=== PATIENT | female | born 1970 | race Caucasian/White ===

== ENCOUNTER 2016-12-08 14:57 | Inpatient (IN) | payer OTHER ==
[~2016-12-08] VITALS: Ht 152.4 cm; Wt 55.3 kg
--- NOTE | ~2016-12-08 | PR ---
[place], [place] PROGRESS NOTE NAME: JARED VYAS UNIT #: [id number] ROOM: 412 DOCTOR: KLARISSA BENSON MD BIRTHDATE: [birth year] DOS: SUBJECTIVE: The patient is doing fine without any complaints this morning. OBJECTIVE: VITAL SIGNS: Graphic trend shows blood pressure 133/88, pulse of 98, respirations 18, temperature 98.0. LUNGS: Clear. HEART: Regular. ABDOMEN: Obese, soft, nontender. EXTREMITIES: Without any edema. ASSESSMENT AND PLAN: 1. Diabetic ketoacidosis, which has resolved. 2. Type 2 diabetes mellitus, insulin-dependent, poorly controlled because of lack of medication. She stopped taking her medications a few days ago. 3. Coronary artery disease of [place] coronaries with history of stent placement. Cardiology consultation was obtained. No further workup planned. The patient to follow up with Dr. Kingsley for readjustment and Levemir dosage. KLARISSA BENSON MD CM:PNTRANS [id number] KLARISSA BENSON MD 12/10/16 1026 interface
--- NOTE | ~2016-12-08 | WRIGHTHP ---
[place], [place] PATIENT HISTORY AND PHYSICAL EXAM NAME: JARED VYAS [facility] #: [id number] UNIT #: [id number] ROOM: 412 DOCTOR: KLARISSA BENSON MD BIRTHDATE: [birth year] DOS: 12/08/2016 HISTORY OF PRESENT ILLNESS: The patient is 46 years old, known to me from previous admission. The patient states for the last several days, she has not felt very good. She has been dizzy, lightheaded, had occasional chest pain, has been short of breath and been increasingly tired, so finally yesterday because of quite a lot weakness that she was experiencing, she decided to come into the Emergency Room. She also noted the heart was racing. She has been admitted here last in 06/2015 with DKA. The patient states that she lost a lot of weight after that and stopped taking all her diabetic medications and she has not checked her blood sugar in months. PAST MEDICAL HISTORY: Significant for; 1. Type 2 diabetes mellitus, insulin-dependent, has stopped taking all her medications about a year ago. 2. History of rheumatoid arthritis, on long-term use of steroids. 3. History of coronary artery disease with history of stent placement in the past by Dr. Velázquez. 4. Benign hypertension. 5. Chronic pain. MEDICATIONS: Voltaren 75 mg daily, Lovenox 60 subQ twice a day, nortriptyline 25 daily, oxycodone 10 daily p.r.n. and 20 b.i.d., prednisone 50 mg daily for 3 days. SOCIAL HISTORY: Nonsmoker, occasional alcohol usage. Children are grown. She takes care of her disabled son. PHYSICAL EXAMINATION: VITAL SIGNS: Graphic trend shows a pressure 111/68, pulse of 115, respirations 20, temperature 98.5. LUNGS: Diminished breath sounds. No wheezes, rales or rhonchi heard. HEART: Regular. ABDOMEN: Soft. EXTREMITIES: Without any edema. LABORATORY DATA: WBC count is 7.7, hemoglobin 15.7, hematocrit 45.8. Protime is normal. Comprehensive glucose 435, BUN 7, creatinine 0.68, sodium 132, potassium 4.2, chloride 95. Liver enzymes normal. Chest x-ray normal. No pathology noted. Troponin was normal. ASSESSMENT AND PLAN: 1. The patient admitted with chest pain, has tachycardia and elevated blood pressures. The patient has been started on Coreg. 2. Hyperglycemia with evidence of diabetic ketoacidosis, anion gap 12, ketone positive. The patient is placed on IV fluids and IV insulin. I also encouraged the patient to restart her diabetic meds and have a close followup with that. 3. Coronary artery disease of [place] coronary, status post stent placement. Cardiology consultation was obtained. I do not believe the chest pain is atypical, most likely from the hypoglycemia and diabetic ketoacidosis. [place], [place] PATIENT HISTORY AND PHYSICAL EXAM [facility]: [id number] UNIT #: [id number] ROOM: [facility] DOCTOR: KLARISSA BENSON MD BIRTHDATE: [birth year] 4. Rheumatoid arthritis, on chronic pain management is being continued. KLARISSA BENSON MD CM:HISPHYS:PATIENT HISTORY AND PHYSICAL EXAMINATION [id number] KLARISSA BENSON MD 12/09/16 0859 interface
--- NOTE | ~2016-12-08 | DS ---
[place], [place] DISCHARGE SUMMARY NAME: [facility]AS [id number] UNIT #: [id number] ROOM: 412 DOCTOR: KLARISSA BENSON MD BIRTHDATE: [birth year] DOS: 12/10/2016 DIAGNOSES: 1. Diabetic ketoacidosis. 2. Type 2 diabetes mellitus, poorly controlled from noncompliance. 3. Rheumatoid arthritis, long-term use of steroids. 4. Coronary artery disease, with history of stent placement by Dr. Velázquez. 5. Hypertension. 6. Chronic pain. MEDICATIONS: New medications prescribed were Levemir 20 units at 5 p.m. and Coreg 12.5 mg twice a day. Home meds are being continued. HOSPITAL COURSE: This patient is a 46-year-old, comes in with complaints of chest pain. Please see H and P for details. After admission, the patient was found to be in DKA. The patient was started on IV fluids, IV insulin drip. The ketoacidosis resolved and the patient's IV insulin drip was discontinued and placed on Levemir. Blood sugars are 200s and high 300s, but the Levemir dosage will need to be further adjusted. The patient is clinically stable and is not having any complaints. No cardiology workup is planned. Cardiology was consulted. Troponins have all come back negative. The plan is to discharge her home today. Further adjustment of meds to be made as an outpatient to better control diabetes. The patient is also encouraged not to stop her medications. KLARISSA BENSON MD CM:DISCHARG [phone] KLARISSA BENSON MD 12/10/16 1000 interface
[~2016-12-08 14:57] MED LIST: ASPIRIN81 M1 PO; ATENOLOL25 MG PO; CLARITIN-D 10 M1 T21 PO; CLARITIN10 MG PO; CYCLOBENZAPRINE10 MG PO; FLONASE 0.05% 121 EA NAS; HUMIRA40 MG/0.3 SQ; HYDROCODONE BIT1 T11 PO; INVOKANA300 M1 PO; LEVEMIR10 ML SC; MACROBID100 M1 PO; METHOTREXATE2.5 M1 PO; OMNICEF300 MG PO; OPANA10 MG PO; OXYCODONE HCL10 M1 PO; PLAVIX75 M1 PO; PLAVIX75 MG PO; PREDNICOT10 MG PO; PREDNISONE20 M1 PO; SIMVASTATIN5 MG PO; VICODIN 500 MG-1 TAB PO; ZITHROMAX Z PA250 MG PO; ZOFRAN ODT4 MG SL; Zofran4 MG PO
[2016-12-08 15:18] VITALS: BP 149/108
[2016-12-08 15:19] LABS: BASO % 0.3 % (0.0-1.0); EOS % 0.3 % (1.0-4.0); HEMATOCRIT 45.8 % (37.0-47.0); HEMOGLOBIN 15.7 g/dl (12.0-16.0); LYMPH # 0.9 10*3/uL (1.3-4.4); LYMPH % 11.2 % (27.0-41.0); MEAN CELL VOLUME 76.7 fl (81.0-99.0); MEAN CORPUSCULAR HGB 26.3 pg (27.0-31.0); MEAN CORPUSCULAR HGB CONC 34.3 g/dl (33.0-37.0); MEAN PLATELET VOLUME 10.8 fl (9.6-12.3); MONO # 0.3 10*3/uL (0.1-1.0); MONO % 3.5 % (3.0-9.0); NEUT # 6.5 10*3/uL (2.3-7.9); NEUT % 84.6 % (47.0-73.0); PLATELET COUNT AUTOMATED 267 10*3/uL (130-400); RED BLOOD COUNT 5.97 10*6/uL (4.10-5.10); RED CELL DISTRI WIDTH 11.6 % (0-14.5); WHITE BLOOD COUNT 7.7 10*3/uL (4.8-10.8)
[2016-12-08 15:27] LABS: ACT PARTIAL THROMBO TIME 23.6 SECONDS (20.8-31.5)
[2016-12-08 15:38] LABS: ALBUMIN 3.5 gm/dl (3.1-4.5); ALKALINE PHOSPHATASE 73 U/L (45-117); BUN 7 mg/dl (7-24); CHLORIDE 95 mmol/L (98-107); CREATININE 0.68 mg/dL (0.55-1.02); MAGNESIUM 1.7 mg/dL (1.5-2.1); SGOT/AST 8 IU/L (3-35); SGPT/ALT 17 U/L (12-78); SODIUM 132 mmol/L (136-145); TOTAL PROTEIN 7.7 gm/dL (6.4-8.2)
[2016-12-08 15:40] LABS: TROPONIN I < 0.015 ng/ml (<0.045)
[2016-12-08 16:47] VITALS: BP 140/106
[2016-12-08] MEDS ORDERED: PREDNISONE10 MG PO (17:21)
[2016-12-08] MEDS ORDERED: VOLTAREN50 M1 PO (17:23)
[2016-12-08] MEDS ORDERED: NORTRIPTYLINE25 MG PO (17:24)
--- NOTE | 2016-12-08 17:33 | NUR ---
[facility] , under the services of KLARISSA Anguiano MD with a diagnosis of CHEST PAIN. Chief complaint is GENERALIZED DISCOMFORT. Patient arrived via bed from ER. Monitor applied. Initial assessment completed. Vital signs taken and recorded. KLARISSA ANGUIANO MD notified of admission to the unit. Orders received. See assessment for past medical history, medications and allergies. Patient and/or family oriented to unit. [facility] visitation policy reviewed. Clothing/patient valuable form completed. NANCY MAN
[2016-12-08] MEDS ORDERED: Lovenox60 MG/0.6 PO (17:42)
--- NOTE | 2016-12-08 17:57 | NUR ---
DR. NUNEZ NOTIFIED OF CONSULT.
--- NOTE | 2016-12-08 18:58 | NUR ---
Shreya GILMORE noted on case monitor in hallway that pt hr was elevated and she notified me. Pt hr is 140-150's, denies chest pain but states she feels palpitations. Bp was 160/110. Notified Dr. Lynn and new orders received.
--- NOTE | 2016-12-08 19:13 | NUR ---
PT HEART RATE ELEVATED 170'S. CHECKED PT, SHE IS ASYMPTOMATIC. WAKING BACK FROM BATHROOM. HEART RATE 130'S AT THIS TIME.
[2016-12-08 19:45] VITALS: BP 140/87
--- NOTE | 2016-12-08 19:45 | NUR ---
PT. STATES THAT "I FEEL THOUGH I AM HAVING A PANIC ATTACK." VERY ANXIOUS; ENCOURAGED PT. TO TAKE DEEP BREATHS. HEART RATE IN THE 150'S; VS TAKEN & RECORDED SEE FLOW SHEET. OBTAINED BLOOD SUGAR AT THIS TIME; CRITICALLY HIGH. WILL ORDER STAT REFLEX.
--- NOTE | 2016-12-08 19:55 | NUR ---
CALLED DR. BENSON PERTAINING TO PT'S CRITICAL HIGH BLOOD GLUCOSE LEVEL. NEW ORDERS OBTAINED.
[2016-12-08 20:00] VITALS: BP 140/87
--- NOTE | 2016-12-08 20:57 | NUR ---
STAT REFLEX BLOOD SUGAR 566; 15 UNITS OF INSULIN GIVEN.
[2016-12-08 21:16] LABS: BILIRUBIN NEGATIVE (NEGATIVE); BLOOD NEGATIVE (NEGATIVE); CLARITY CLEAR (CLEAR); COLOR YELLOW (YELLOW); GLUCOSE 3+ (NEGATIVE); KETONE 3+ (NEGATIVE); LEUKO ESTERASE NEGATIVE (NEGATIVE); NITRITE NEGATIVE (NEGATIVE); PH 5.5 (5.0-9.0); SPECIFIC GRAVITY <= 1.005 (1.005-1.030); UROBILINOGEN 0.2 E.U./dl (0.2-1.0)
--- NOTE | 2016-12-08 21:20 | NUR ---
CALLED DR. BENSON WITH PATIENT'S ACETONE LEVEL & BLOOD SUGAR LEVEL. NEW ORDERS RECEIVED.
[2016-12-08 21:22] LABS: BACTERIA 1+; EPITHELIAL CELLS 0-2; RBC 0-2 rbc/hpf (0-2)
--- NOTE | 2016-12-08 21:32 | NUR ---
LEFT MESSAGE ON DR. BENSON'S ANSWERING MACHINE THAT PATIENT IS ABLE TO REMAIN ON 4EAST WITH AN INSULIN DRIP.
--- NOTE | 2016-12-08 22:33 | NUR ---
TAKEN DOWN TO RADIOLOGY FOR CT SCAN OF CHEST. PT. STATES THAT SHE IS FEELING MUCH BETTER; WILL CONTINUE TO MONITOR.
--- NOTE | 2016-12-08 22:42 | NUR ---
BACK FROM RADIOLOGY.
[2016-12-09] VITALS: BP 111/68
--- NOTE | 2016-12-09 | NUR ---
BLOOD SUGAR 369.
--- NOTE | 2016-12-09 01:00 | NUR ---
MEDICATED WITH AMBIEN PER PT'S REQUEST FOR INSOMNIA.
--- NOTE | 2016-12-09 02:00 | NUR ---
BLOOD SUGAR 296.
--- NOTE | 2016-12-09 03:43 | NUR ---
DR. BENSON CALLED WITH REPORT FROM CT SCAN. ORDERS TO CONTINUE INSULIN DRIP & IV FLUIDS RECEIVED.
--- NOTE | 2016-12-09 04:01 | NUR ---
BLOOD SUGAR 227.
--- NOTE | 2016-12-09 05:15 | NUR ---
BLOOD SUGAR 233.
[2016-12-09 06:50] LABS: BASO % 0.3 % (0.0-1.0); EOS # 0.1 10*3/uL (0.0-0.4); LYMPH # 2.1 10*3/uL (1.3-4.4); LYMPH % 28.5 % (27.0-41.0); MEAN CELL VOLUME 76.6 fl (81.0-99.0); MEAN CORPUSCULAR HGB 26.5 pg (27.0-31.0); MEAN CORPUSCULAR HGB CONC 34.6 g/dl (33.0-37.0); MEAN PLATELET VOLUME 10.8 fl (9.6-12.3); MONO # 0.5 10*3/uL (0.1-1.0); MONO % 7.4 % (3.0-9.0); NEUT # 4.6 10*3/uL (2.3-7.9); NEUT % 62.5 % (47.0-73.0); PLATELET COUNT AUTOMATED 263 10*3/uL (130-400); RED BLOOD COUNT 4.99 10*6/uL (4.10-5.10); RED CELL DISTRI WIDTH 11.8 % (0-14.5); WHITE BLOOD COUNT 7.3 10*3/uL (4.8-10.8)
[2016-12-09 06:51] LABS: HEMATOCRIT 38.2 % (37.0-47.0); HEMOGLOBIN 13.2 g/dl (12.0-16.0)
[2016-12-09 07:09] LABS: BUN 12 mg/dl (7-24); CHLORIDE 102 mmol/L (98-107); CREATININE 0.51 mg/dL (0.55-1.02); POTASSIUM 3.6 mmol/L (3.5-5.1); SODIUM 138 mmol/L (136-145)
[2016-12-09 08:00] VITALS: BP 140/90
--- NOTE | 2016-12-09 09:37 | NUR ---
OXYCODONE GIVEN FOR C/O GENERALIZED DISCOMFORT. WILL MONITOR.
[2016-12-09 12:00] VITALS: BP 108/64
[2016-12-09 16:00] VITALS: BP 124/84
--- NOTE | 2016-12-09 19:45 | NUR ---
PT C/O GEN PAIN. PT TEACHING GIVEN ON PRN PAIN MED ORDERED AND TIMES. PT ADVISED TO SPEAK WITH DR. BENSON IN THE AM RE PAIN MED. PT STATES IT IS FROM LYING IN BED. PT ADVISED SHE IS PERMITTED TO WALK IN ROOM AND ON THE FLOOR. PT SIGHS. PT REMAINS IN BED WATCHING TV.
[2016-12-09 20:00] VITALS: BP 121/81
[2016-12-10] VITALS: BP 133/88
--- NOTE | 2016-12-10 01:39 | NUR ---
24 HR chart check completed.
[2016-12-10] MEDS ORDERED: LEVEMIR100 UNIT/1 SC (07:59)
[2016-12-10] MEDS ORDERED: COREG12.5 M1 PO (07:59)
--- NOTE | 2016-12-10 08:30 | NUR ---
Waist Presser in to talk to patient. Patient states lives at HOME with HER SON. There are 12 steps in the home. Physician: DR NINO [facility] Home health services: NONE Patient's level of ADLs: INDEPENDENT Patient has working utilities: YES DME: NONE Follow-up physician's appointment after d/c: PREFERS TO MAKE HER OWN APPT Does patient want to access PORTAL?: Discharge plan HOME. MAXIMILIANO ROSALES
--- NOTE | 2016-12-10 08:45 | NUR ---
MSDIS Discharge instructions reviewed with patient/family. Patient receptive and verbalizes understanding. Follow-up care arranged. Written instructions given to patient/family. NANCY MAN
== END 2016-12-10 08:45 | disposition home or self-care (01) | DRG 639 ==
LOC: ED 14:57 → 4E 16:11 → EDHOLD 16:11 → 4E 16:14
PROVIDERS: Student in an Organized Health Care Education/Training Program; ADMIT Internal Medicine
DX: E11.10 Type 2 diabetes mellitus with ketoacidosis without coma (principal); I10 Essential (primary) hypertension; G89.29 Other chronic pain; I25.10 Atherosclerotic heart disease of native coronary artery without angina pectoris; M06.9 Rheumatoid arthritis, unspecified; Z91.14 Patient's other noncompliance with medication regimen; Z79.52 Long term (current) use of systemic steroids; Z98.61 Coronary angioplasty status; Z79.4 Long term (current) use of insulin

== ENCOUNTER 2017-05-29 23:25 | Inpatient (IN) | payer OTHER ==
[~2017-05-29] VITALS: Ht 152.4 cm; Wt 55.4 kg
[~2017-05-29 23:25] MED LIST changes: +COREG12.5 M1 PO; +LEVEMIR100 UNIT/1 SC; +Lovenox60 MG/0.6 PO; +NORTRIPTYLINE25 MG PO; +PREDNISONE10 MG PO; +VOLTAREN50 M1 PO
[2017-05-29 23:26] VITALS: BP 174/113
[2017-05-30 00:06] LABS: BASO % 0.3 % (0.0-1.0); EOS % 0.3 % (1.0-4.0); HEMATOCRIT 44.1 % (37.0-47.0); LYMPH # 1.3 10*3/uL (1.3-4.4); LYMPH % 18.7 % (27.0-41.0); MEAN CELL VOLUME 75.8 fl (81.0-99.0); MEAN CORPUSCULAR HGB 25.8 pg (27.0-31.0); MEAN PLATELET VOLUME 10.6 fl (9.6-12.3); MONO # 0.3 10*3/uL (0.1-1.0); MONO % 4.6 % (3.0-9.0); NEUT # 5.4 10*3/uL (2.3-7.9); PLATELET COUNT AUTOMATED 270 10*3/uL (130-400); RED BLOOD COUNT 5.82 10*6/uL (4.10-5.10); RED CELL DISTRI WIDTH 12.3 % (0-14.5); WHITE BLOOD COUNT 7.2 10*3/uL (4.8-10.8)
[2017-05-30 00:16] LABS: ACT PARTIAL THROMBO TIME 23.4 SECONDS (20.8-31.5)
[2017-05-30 00:21] LABS: ALBUMIN 3.7 gm/dl (3.1-4.5); ALKALINE PHOSPHATASE 73 U/L (45-117); BUN 9 mg/dl (7-24); CHLORIDE 96 mmol/L (98-107); CREATININE 0.67 mg/dL (0.55-1.02); LIPASE 52 U/L (73-393); POTASSIUM 3.6 mmol/L (3.5-5.1); SGOT/AST 10 IU/L (3-35); SGPT/ALT 15 U/L (12-78); SODIUM 134 mmol/L (136-145); TOTAL PROTEIN 8.1 gm/dL (6.4-8.2)
[2017-05-30 00:22] LABS: TROPONIN I < 0.015 ng/ml (<0.045)
[2017-05-30 00:34] VITALS: BP 168/104
[2017-05-30 01:11] VITALS: BP 174/104
[2017-05-30 08:00] VITALS: BP 171/103
== END 2017-05-30 08:03 | disposition left against medical advice (07) | DRG 641 ==
LOC: ED 23:25 → EDHOLD 05-30 00:57 → 4E 05-30 01:06
PROVIDERS: Physician Assistant
DX: E86.0 Dehydration (principal); E87.2 Acidosis; Z53.21 Procedure and treatment not carried out due to patient leaving prior to being seen by health care provider; R73.9 Hyperglycemia, unspecified; Z88.2 Allergy status to sulfonamides; Z79.4 Long term (current) use of insulin; Z79.899 Other long term (current) drug therapy; Z90.49 Acquired absence of other specified parts of digestive tract; Z90.710 Acquired absence of both cervix and uterus; Z98.51 Tubal ligation status; Z80.9 Family history of malignant neoplasm, unspecified; Z82.49 Family history of ischemic heart disease and other diseases of the circulatory system

== ENCOUNTER 2018-03-30 16:13 | Emergency (ER) | payer OTHER ==
[~2018-03-30] VITALS: Ht 152.4 cm; Wt 58.1 kg
[2018-03-30] MEDS ORDERED: MEDROL DOSEPAK4 MG PO (16:25)
[2018-03-30] MEDS ORDERED: Bactroban Oint22 GM T (16:25)
== END 2018-03-30 16:48 | disposition home or self-care (01) ==
LOC: ED 16:13
DX: L55.1 Sunburn of second degree (principal); E11.9 Type 2 diabetes mellitus without complications; I10 Essential (primary) hypertension; Z90.710 Acquired absence of both cervix and uterus; Z90.49 Acquired absence of other specified parts of digestive tract; Z88.2 Allergy status to sulfonamides; Z79.899 Other long term (current) drug therapy

== ENCOUNTER → 2018-06-02 | Outpatient (CLI) | payer OTHER ==
[~2018-06-02] MED LIST changes: +Bactroban Oint22 GM T; +MEDROL DOSEPAK4 MG PO; +ZOFRAN4 MG PO
== END | disposition home or self-care (01) ==
LOC: CT 13:00
DX: M06.821 Other specified rheumatoid arthritis, right elbow (principal); M25.421 Effusion, right elbow; M25.721 Osteophyte, right elbow

== ENCOUNTER 2018-08-25 09:31 | Emergency (ER) | payer OTHER ==
[~2018-08-25] VITALS: Ht 152.4 cm; Wt 54.9 kg
[~2018-08-25 09:31] MED LIST changes: -ZOFRAN4 MG PO
[2018-08-25 10:17] LABS: BASO # 0.1 10*3/uL (0.0-0.1); BASO % 0.6 % (0.0-1.0); EOS % 0.4 % (1.0-4.0); HEMATOCRIT 43.5 % (37.0-47.0); LYMPH # 1.6 10*3/uL (1.3-4.4); LYMPH % 18.7 % (27.0-41.0); MEAN CELL VOLUME 78.2 fl (81.0-99.0); MEAN CORPUSCULAR HGB 25.2 pg (27.0-31.0); MEAN CORPUSCULAR HGB CONC 32.2 g/dl (33.0-37.0); MEAN PLATELET VOLUME 10.3 fl (9.6-12.3); MONO # 0.8 10*3/uL (0.1-1.0); MONO % 8.8 % (3.0-9.0); NEUT # 6.1 10*3/uL (2.3-7.9); PLATELET COUNT AUTOMATED 435 10*3/uL (130-400); RED BLOOD COUNT 5.56 10*6/uL (4.10-5.10); RED CELL DISTRI WIDTH 14.2 % (0-14.5); WHITE BLOOD COUNT 8.5 10*3/uL (4.8-10.8)
[2018-08-25 10:32] LABS: BILIRUBIN 1+ (NEGATIVE); BLOOD NEGATIVE (NEGATIVE); CLARITY CLOUDY (CLEAR); COLOR YELLOW (YELLOW); GLUCOSE NEGATIVE (NEGATIVE); KETONE TRACE (NEGATIVE); LEUKO ESTERASE TRACE (NEGATIVE); NITRITE NEGATIVE (NEGATIVE); PH 5.5 (5.0-9.0); UROBILINOGEN 0.2 E.U./dl (0.2-1.0)
[2018-08-25 10:33] LABS: ALBUMIN 3.7 gm/dl (3.1-4.5); ALKALINE PHOSPHATASE 59 U/L (45-117); BUN 17 mg/dl (7-24); CHLORIDE 93 mmol/L (98-107); CREATININE 1.06 mg/dL (0.55-1.02); LIPASE 63 U/L (73-393); POTASSIUM 3.2 mmol/L (3.5-5.1); SGOT/AST 36 IU/L (3-35); SGPT/ALT 16 U/L (12-78); SODIUM 134 mmol/L (136-145); TOTAL PROTEIN 7.6 gm/dL (6.4-8.2)
[2018-08-25 10:36] LABS: ETHYL ALCOHOL < 3.0 mg/dl (<3)
[2018-08-25 10:41] LABS: URINE AMPHETAMINES < 1000 (1000ng/ml); URINE BARBITURATES < 200 (200ng/ml); URINE BENZODIAZEPINES > 200 (200ng/ml); URINE CANNABINOIDS (THC) < 50 (50ng/ml); URINE COCAINE < 300 (300ng/ml); URINE METHADONE < 300 (300ng/ml); URINE OPIATES > 300 (300ng/ml)
[2018-08-25 10:46] LABS: BACTERIA 3+; HYALINE CAST 41-50; MUCOUS 2+
[2018-08-25 10:51] LABS: URINE PHENCYCLIDINE < 25 (25ng/ml)
[2018-08-25] MEDS ORDERED: ZOFRAN4 MG PO (12:29)
== END 2018-08-25 12:32 | disposition home or self-care (01) ==
LOC: ED
PROVIDERS: Nurse Practitioner Family
DX: R11.2 Nausea with vomiting, unspecified (principal); R10.9 Unspecified abdominal pain; F11.10 Opioid abuse, uncomplicated; Z88.2 Allergy status to sulfonamides

== ENCOUNTER 2018-10-20 18:16 | Emergency (ER) | payer OTHER ==
[~2018-10-20] VITALS: Ht 167.6 cm; Wt 56.7 kg
--- NOTE | ~2018-10-20 | EKG ---
[place], [place] ELECTROCARDIOGRAM REPORT NAME: JARED VYAS UNIT #: [id number] ROOM: DOCTOR: EPIPHANY DRAFT REPORT BIRTHDATE: [address] [facility] Test Date: 2018-10-20 Test Time: 18:50:39 Pat Name: JARED VYAS Department: ED Room: Gender: F Sales Office Coordinator: Elia Plata : 1970 Requested By: SHAHZAD NICOLE Order Number: [id number] Reading MD: Brooks Elizondo MD Measurements Intervals [place] Rate: 75 P: 34 KS: 123 QRS: 54 QRSD: 98 T: 63 QT: 437 QTc: 489 Interpretive Statements Sinus rhythm Probable left atrial enlargement Borderline low voltage, extremity leads Consider anterior infarct Compared to ECG 08/12/2018 02:38:58 No significant changes Electronically Signed On 11-03-2018 7:27:38 PDT by Brooks Elizondo MD CM:EKGRPT:ELECTROCARDIOGRAM REPORT [id number] SHAHZAD WHEATLEY DRAFT REPORT SHAHZAD NICOLE DO
[~2018-10-20 18:16] MED LIST changes: +ZOFRAN4 MG PO
[2018-10-20 18:50] LABS: BASO % 0.4 % (0.0-1.0); EOS # 0.1 10*3/uL (0.0-0.4); EOS % 1.3 % (1.0-4.0); HEMATOCRIT 37.2 % (37.0-47.0); HEMOGLOBIN 11.7 g/dl (12.0-16.0); LYMPH # 1.1 10*3/uL (1.3-4.4); LYMPH % 24.7 % (27.0-41.0); MEAN CORPUSCULAR HGB 24.8 pg (27.0-31.0); MEAN CORPUSCULAR HGB CONC 31.5 g/dl (33.0-37.0); MEAN PLATELET VOLUME 10.4 fl (9.6-12.3); MONO # 0.4 10*3/uL (0.1-1.0); MONO % 9.4 % (3.0-9.0); NEUT # 2.8 10*3/uL (2.3-7.9); PLATELET COUNT AUTOMATED 219 10*3/uL (130-400); RED BLOOD COUNT 4.71 10*6/uL (4.10-5.10); RED CELL DISTRI WIDTH 13.7 % (0-14.5); WHITE BLOOD COUNT 4.5 10*3/uL (4.8-10.8)
[2018-10-20 19:05] LABS: ALBUMIN 3.3 gm/dl (3.1-4.5); ALKALINE PHOSPHATASE 83 U/L (45-117); BUN 8 mg/dl (7-24); CHLORIDE 100 mmol/L (98-107); CREATININE 0.58 mg/dL (0.55-1.02); LIPASE 66 U/L (73-393); POTASSIUM 3.8 mmol/L (3.5-5.1); SGOT/AST 23 IU/L (3-35); SGPT/ALT 24 U/L (12-78); SODIUM 133 mmol/L (136-145); TOTAL PROTEIN 7.4 gm/dL (6.4-8.2)
[2018-10-20 19:06] LABS: ACETAMINOPHEN (TYLENOL) < 5.0 ug/ml (10-30); ETHYL ALCOHOL < 3.0 mg/dl (<3); TROPONIN I < 0.015 ng/ml (<0.045)
== END 2018-10-20 20:56 | disposition home or self-care (01) ==
LOC: ED 18:16
PROVIDERS: Emergency Medicine
DX: T50.901A Poisoning by unspecified drugs, medicaments and biological substances, accidental (unintentional), initial encounter (principal); I25.10 Atherosclerotic heart disease of native coronary artery without angina pectoris; E11.9 Type 2 diabetes mellitus without complications; E78.5 Hyperlipidemia, unspecified; I10 Essential (primary) hypertension; M06.9 Rheumatoid arthritis, unspecified; Z88.2 Allergy status to sulfonamides; Z79.899 Other long term (current) drug therapy; Z90.710 Acquired absence of both cervix and uterus; Z90.49 Acquired absence of other specified parts of digestive tract; Y92.098 Other place in other non-institutional residence as the place of occurrence of the external cause

== ENCOUNTER 2019-03-20 18:46 | Emergency (ER) | payer OTHER ==
[~2019-03-20] VITALS: Ht 152.4 cm; Wt 54.4 kg
[2019-03-20] MEDS ORDERED: Motrin,Rufen800 MG PO (20:26)
== END 2019-03-20 20:41 | disposition home or self-care (01) ==
LOC: ED 18:46
DX: S69.92XA Unspecified injury of left wrist, hand and finger(s), initial encounter (principal); R94.39 Abnormal result of other cardiovascular function study; Z88.2 Allergy status to sulfonamides; Z79.2 Long term (current) use of antibiotics; Z79.899 Other long term (current) drug therapy; Z90.710 Acquired absence of both cervix and uterus; Z90.49 Acquired absence of other specified parts of digestive tract; X58.XXXA Exposure to other specified factors, initial encounter; Y93.89 Activity, other specified; Y92.89 Other specified places as the place of occurrence of the external cause; Y99.8 Other external cause status

== ENCOUNTER 2020-02-16 02:30 | Inpatient (IN) | payer OTHER ==
[2020-02-16] VITALS (12 sets, daily range): BP systolic 102–169; BP diastolic 60–107
[~2020-02-16] VITALS: Ht 152.4 cm; Wt 57.7 kg
[~2020-02-16 02:30] MED LIST changes: +Motrin,Rufen800 MG PO
--- NOTE | 2020-02-16 03:00 | NUR ---
PT REFUSES TO PUT A GOWN ON. DAVE HUTCHINSON RN.
[2020-02-16 03:35] LABS: ALBUMIN 2.5 gm/dl (3.1-4.5); ALKALINE PHOSPHATASE 131 U/L (45-117); BUN 8 mg/dl (7-24); CHLORIDE 96 mmol/L (98-107); CREATININE 0.68 mg/dL (0.55-1.02); SGOT/AST 39 IU/L (3-35); SGPT/ALT 26 U/L (12-78); SODIUM 129 mmol/L (136-145); TOTAL PROTEIN 9.2 gm/dL (6.4-8.2)
--- NOTE | 2020-02-16 05:15 | NUR ---
Patient refused wound pictures at this time.
--- NOTE | 2020-02-16 05:24 | NUR ---
PICTURES TAKEN BY WOUND CARE NURSE AND DRESSING APPLIED. DAVE HUTCHINSON RN.
--- NOTE | 2020-02-16 05:30 | NUR ---
PT ENCOURAGED TO LAY WITH LEG STILL SHE MAY DISLODGE HER I/O . FLUIDS INFUSING. DAVE HUTCHINSON RN.
[2020-02-16 07:00] LABS: BASO % 0.1 % (0.0-1.0); EOS % 0.1 % (1.0-4.0); HEMATOCRIT 33.9 % (37.0-47.0); LYMPH # 0.4 10*3/uL (1.3-4.4); LYMPH % 4.1 % (27.0-41.0); MEAN CELL VOLUME 72.7 fl (81.0-99.0); MEAN CORPUSCULAR HGB 22.3 pg (27.0-31.0); MEAN CORPUSCULAR HGB CONC 30.7 g/dl (33.0-37.0); MEAN PLATELET VOLUME 9.3 fl (9.6-12.3); MONO # 0.5 10*3/uL (0.1-1.0); MONO % 6.2 % (3.0-9.0); NEUT # 7.8 10*3/uL (2.3-7.9); NEUT % 89.2 % (47.0-73.0); PLATELET COUNT AUTOMATED 176 10*3/uL (130-400); RED BLOOD COUNT 4.66 10*6/uL (4.10-5.10); RED CELL DISTRI WIDTH 15.6 % (0-14.5); WHITE BLOOD COUNT 8.8 10*3/uL (4.8-10.8)
[2020-02-16 07:11] LABS: ACT PARTIAL THROMBO TIME 31.6 SECONDS (20.0-32.1); INTERNATIONAL NORM RATIO 1.2 (2.0-3.5)
[2020-02-16 07:23] LABS: FREE T4 1.69 ng/dl (0.76-1.46)
[2020-02-16 07:29] LABS: THYROID STIM HORMONE (HS) 1.59 uIU/ml (0.358-4.75)
--- NOTE | 2020-02-16 07:30 | NUR ---
INITIAL CONTACT WITH PT. ALERT AND ORIENTED. SKIN WARM AND DRY. RESPIRATIONS EVEN AND UNLABORED. REPORTS PAINS AT IO SITE LLE. BLOOD RETURN NOTED AND REQUESTING IV FLUIDS STOP. NEW IV SITE ESTABLISHED WITH MAJOR DIFFICULTY. 24G PLACE TO THE LEFT LOWER EXTREMITY. CALL PRADO IN REACH. PLACED INTO HOSPITAL ATTIRE. CHANGE IN BED LININ. NO DISTRESS NOTED AT TIME. DRAINAGE NOTED TO THE ABSCESS OF THE LEFT UPPER EXTREMITY AND THRU DRESSING TO THE RIGHT FOOT. WOUNDS EXAMINED BY WOUND CARE NURSE PER HAND OFF FROM PREVIOUS SHIFT.
[2020-02-16 09:44] LABS: BILIRUBIN Negative (Negative); BLOOD Negative (Negative); CLARITY Clear (Clear); COLOR Dark Yellow (Yellow); GLUCOSE Negative (Negative); KETONE 3+ (Negative); LEUKO ESTERASE Trace (Negative); NITRITE Negative (Negative); PH 7.5 (4.5-8.0); SPECIFIC GRAVITY 1.015 (1.001-1.030)
[2020-02-16 09:52] LABS: URINE AMPHETAMINES < 1000 (1000ng/ml); URINE BARBITURATES < 200 (200ng/ml); URINE BENZODIAZEPINES < 200 (200ng/ml); URINE CANNABINOIDS (THC) < 50 (50ng/ml); URINE COCAINE < 300 (300ng/ml); URINE METHADONE < 300 (300ng/ml); URINE OPIATES < 300 (300ng/ml); URINE PHENCYCLIDINE < 25 (25ng/ml)
[2020-02-16 10:45] LABS: BACTERIA 1+; MUCOUS 2+
--- NOTE | 2020-02-16 14:12 | NUR ---
MOVEMENT ASSEMBLY FINAL INSPECTOR AND ORTHO / FOOT SURG AT BEDSIDE.
--- NOTE | 2020-02-16 15:03 | NUR ---
report recieved from wilfrid turpin
--- NOTE | 2020-02-16 15:35 | NUR ---
PT TO SURGERY
--- NOTE | 2020-02-16 18:31 | NUR ---
RECIEVED REPORT FROM SURGERY FROM [facility] PT WITH WOUND I&D RIGHT FOOT AND LOWER LEG PT WITH DRESSING AND WOUND VAC IN PLACE AWAITING RETURN OF PATIENT TO ROOM #12
--- NOTE | 2020-02-16 18:50 | NUR ---
PT RETURNS NO VERBAL RESPONCE AIRWAY PATENT PULSE OX 100% RA WOUND VAC IN PLACE WITH BLOODY DRAINAGE PT SKIN PINK W/D
[2020-02-17 00:58] VITALS: BP 147/87
--- NOTE | 2020-02-17 00:58 | NUR ---
A 49, admitted to 5E, under the services of MCKAY Sanders DO with a diagnosis of abscess, skin ulceration, herion withdrawl. Chief complaint is pain right foot, infection right foot. for over a month c/o n/v. 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 Patient arrived via stretcher from ER. Monitor applied. Initial assessment completed. Vital signs taken and recorded. MCKAY SANDERS DO notified of admission to 5E unit. Orders received. See assessment for past medical history, medications and allergies. Patient and/or family oriented to unit. [address] visitation policy reviewed. Clothing/patient valuable form completed. Pt. had surgery done today and wound vac placed on right foot to low continuous suction at 200mmHg with black foam. Podiatry to manage wound/dressing/wound vac. unable to measure or take pictures. Patient has multiple track johnston left hand/wrist/forearm/antecubital area that are scabbed and hard lumps and red/ecchymotic. Also track johnston on right arm noted to be the same as left arm. Patient c/o pain in right leg/wound vac area explained to patient only tylenol and motrin were ordered and patient stated "That's not going to get it." explained to patient this RN would call to see if will order anything else for pain. BOBBY POPE
[2020-02-17 01:09] VITALS: BP 170/90
--- NOTE | 2020-02-17 01:48 | NUR ---
called and spoke with Dr. Hernandez about patients pain and that patient said that's not going to take care of the pain. No new orders received for pain. Explained to patient would not order anything else for pain. motrin given for pain and trazadone given to help patient sleep. see mar.
--- NOTE | 2020-02-17 02:45 | NUR ---
PATIENT SLEEPING. MOTRIN AND TRAZADONE EFFECTIVE.
--- NOTE | 2020-02-17 04:58 | NUR ---
24 HR chart check completed.
--- NOTE | 2020-02-17 05:38 | NUR ---
ZOFRAN GIVEN PER ORDER FOR NAUSEA.
--- NOTE | 2020-02-17 05:57 | NUR ---
PT INSTRUCTED TO USE INCENTIVE SPIROMETER Q2 HOURS WHILE AWAKE. PT UNDERSTANDS
--- NOTE | 2020-02-17 06:30 | NUR ---
ZOFRAN EFFECTIVE PER PT.
[2020-02-17 07:55] LABS: ALKALINE PHOSPHATASE 79 U/L (45-117); BUN 7 mg/dl (7-24); CHLORIDE 98 mmol/L (98-107); CREATININE 0.42 mg/dL (0.55-1.02); POTASSIUM 3.8 mmol/L (3.5-5.1); SGOT/AST 26 IU/L (3-35); SGPT/ALT 19 U/L (12-78); SODIUM 128 mmol/L (136-145); TOTAL PROTEIN 7.4 gm/dL (6.4-8.2)
--- NOTE | 2020-02-17 09:35 | NUR ---
PT IS STARTING TO WITHDRAWL, SHE IS CURRENTLY VOMITING. SHE DOES HAVE IV ZOFRAN ON ORDER, BUT DUE TO HER HX WE CANNOT OBTAIN IV ACCESS. WE ARE AWAITING MIDLINE PLACEMENT FROM SURGERY.
[2020-02-17 10:37] LABS: EOS % 0.5 % (1.0-4.0); HEMATOCRIT 27.8 % (37.0-47.0); LYMPH # 1.1 10*3/uL (1.3-4.4); LYMPH % 20.4 % (27.0-41.0); MEAN CELL VOLUME 72.4 fl (81.0-99.0); MEAN CORPUSCULAR HGB 22.9 pg (27.0-31.0); MEAN CORPUSCULAR HGB CONC 31.7 g/dl (33.0-37.0); MEAN PLATELET VOLUME 9.5 fl (9.6-12.3); MONO # 0.6 10*3/uL (0.1-1.0); MONO % 10.7 % (3.0-9.0); NEUT # 3.8 10*3/uL (2.3-7.9); PLATELET COUNT AUTOMATED 177 10*3/uL (130-400); RED BLOOD COUNT 3.84 10*6/uL (4.10-5.10); RED CELL DISTRI WIDTH 15.6 % (0-14.5); WHITE BLOOD COUNT 5.6 10*3/uL (4.8-10.8)
--- NOTE | 2020-02-17 10:49 | NUR ---
MEDICATED THE PT FOR PAIN AND NAUSEA. WILL FOLLOW UP
[2020-02-17 12:00] VITALS: BP 179/91
--- NOTE | 2020-02-17 12:46 | NUR ---
Discussed case with Manda Fernandez PILOT TEACHER. Manda feels this patient is going to need placement due to the condition of the wound, the infection with gangrene and the wound vac. Due to patients history and current use of IV drugs and her [place] medicaid, we will look for a facility that will admitt patient for nursing/wound care and have drug use support services, patient must stay in the [facility] [place]. Sonali from our [facility] program stated that [facility] has a similar program called break through, however they do not accept "transfers". I spoke with Mari from [facility] who stated their sister [facility]" has such facilities in or around the [facility] area that she is going to look into. I also contacted Miranda/[facility] asking about their [place] facility that specializes in wound care and drug recovery. However with the patients [place] Medicaid she is unsure if they will be able to accept. She is checking with [employer] on insurance. Patient is currently in pain and experiencing nausea/vomiting due to possible withdrawl; was not able to go in and discuss plans with patient today. Will contact at a later date.
--- NOTE | 2020-02-17 13:28 | NUR ---
PHYSICAL THERAPY Physical Therapy evaluation completed on 5E with full evaluation to follow. Low complexity skilled PT evaluation per chart review and evaluation, [id number]. Recommend physical therapy per plan of care and SNF upon discharge. Thank you for this referral. Miranda Markham,PT,DPT
--- NOTE | 2020-02-17 13:30 | NUR ---
Occupational Therapy evaluation completed on five with full evaluation to follow. Recommend occupational therapy per plan of care and SNF upon discharge. Thank you for this referral. Danette Steele OTR/L
[2020-02-17 16:00] VITALS: BP 178/99
--- NOTE | 2020-02-17 19:41 | NUR ---
DR. EVANS FOLLOWING CARE.
[2020-02-17 20:00] VITALS: BP 150/88
--- NOTE | 2020-02-17 20:11 | NUR ---
PATIENT WANTED SOMETHING TO "HELP HER CALM DOWN LIKE ATIVAN" CALLED DR. NUNEZ AND NO NEW ORDERS RECEIVED. MOTRIN GIVEN PER ORDER FOR PAIN PER PT. "7" AND TRAZADONE GIVEN PER ORDER FOR INSOMNIA. SEE MAR.
--- NOTE | 2020-02-17 21:10 | NUR ---
MOTRIN AND TRAZADONE EFFECTIVE FOR PAIN AND ANXIETY PATIENT SLEEPING.
[2020-02-17 22:00] VITALS: BP 150/88
--- NOTE | 2020-02-17 23:03 | NUR ---
ZOFRAN GIVEN PER ORDER FOR NAUSEA AND PERCOCET GIVEN PER ORDER FOR PAIN IN RIGHT FOOT RATED "7-8". SEE MAR.
[2020-02-18] VITALS (7 sets, daily range): BP systolic 141–188; BP diastolic 79–110
--- NOTE | 2020-02-18 00:01 | NUR ---
PERCOCET AND ZOFRAN EFFECTIVE FOR PAIN AND NAUSEA.
--- NOTE | 2020-02-18 01:47 | NUR ---
TYLENOL GIVEN PER ORDER FOR PAIN IN RIGHT FOOT. PATIENT STATED "IT JUST HURTS TO LAY HERE." SEE MAR.
--- NOTE | 2020-02-18 02:45 | NUR ---
PATIENT RESTING BUT TYLENOL NOT EFFECTIVE FOR PAIN PAT THIS TIME.
--- NOTE | 2020-02-18 05:22 | NUR ---
PERCOCET GIVEN PER ORDER FOR PAIN RIGHT FOOT RATED "9" SEE MAR.
--- NOTE | 2020-02-18 06:20 | NUR ---
PERCOCET EFFECTIVE FOR PAIN REDUCTION.
[2020-02-18 07:55] LABS: BASO % 0.3 % (0.0-1.0); EOS # 0.1 10*3/uL (0.0-0.4); EOS % 1.5 % (1.0-4.0); HEMATOCRIT 25.5 % (37.0-47.0); LYMPH # 1.2 10*3/uL (1.3-4.4); LYMPH % 30.3 % (27.0-41.0); MEAN CELL VOLUME 74.8 fl (81.0-99.0); MEAN CORPUSCULAR HGB 22.9 pg (27.0-31.0); MEAN CORPUSCULAR HGB CONC 30.6 g/dl (33.0-37.0); MEAN PLATELET VOLUME 9.8 fl (9.6-12.3); MONO # 0.3 10*3/uL (0.1-1.0); MONO % 8.5 % (3.0-9.0); NEUT # 2.4 10*3/uL (2.3-7.9); NEUT % 59.1 % (47.0-73.0); PLATELET COUNT AUTOMATED 185 10*3/uL (130-400); RED BLOOD COUNT 3.41 10*6/uL (4.10-5.10); RED CELL DISTRI WIDTH 15.4 % (0-14.5)
--- NOTE | 2020-02-18 08:07 | NUR ---
Offset Plate Maker in to talk to patient. Patient states lives at Home with herself. There are 15 steps in the home. Physician: Sancho [facility]acy: [facility] Home health services: none Patient's level of ADLs: INDEPENDENT Patient has working utilities: Patient stated she has shut off notices for electric and water. DME: cane and walker Follow-up physician's appointment after d/c: [facility] Does patient want to access PORTAL?: no Discharge plan discussed with patient. Discussed going to a facility for wound care and IV ABX. Patient stated she doesn't want to go to a facility, she wants a nurse to come into her home. She states she has a two story home but the 1st floor has a bathroom and all of her clothes are on the first floor, she has not reason to go upstairs. She stated her 3 months ago and her daughter is in [place] going to school. She does not have any transportation. . SAHARA DE
--- NOTE | 2020-02-18 08:15 | NUR ---
PHYSICAL THERAPY Patient seen this am 1:1 for therapy visit and was resting supine in bed upon therapist arrival. Patient identified by name / and joined by OT management assistant for observation this session. Patient recorded resting HR 92 bpm prior to transfering supine to sit EOB, then sit to stand CGA x 1. Patient presented with R LE wound vac and is NWB on R LE. Patient performed SPT to BSC, use of wh walker standing support, SBA, demonstrating 75% compliance with NWB status. Patient received v/c to improve NWB status, completing addtional SPT to bedside chair, wh walker, SBA x 1. Patient demonstrated improved safety during transfer with 100% compliance NWB status. Patient completed several sit to stand transfers from chair surface, SBA, tolerating approx 1 minute static stand each trial. Patient returned to and remained in bedside chair with call light, tray table, telephone. Will continue per POC as tolerated, total treatment time 16 minutes. Aneesh Park, STOCK UNLOADER
--- NOTE | 2020-02-18 08:25 | NUR ---
OT NOTE Pt was seen this A.M. 1:1 for 13 minute OT session. Upon arrival pt was supine in bed. Pt identified by name and and had complaints of 8/10 R foot pain. Pt presented to therapy with wound vac to RLE which remained in place throughout entire session. Pt was able to self recall and verbalize NWB status to RLE. Pt transferred supine to sit EOB with supervision. Sit to stand completed from bed level with CGA and use of w/w for UE support. Challenged pt's static standing tolerance needed for incrased I in self care tasks and functional transfers. Pt was able to tolerate aprox 60 seconds before sitting due to fatigue. Throughout static stand pt was 100% compliant with NWB to RLE. After a seated rest break pt then completed standing pivot from the EOB to the bedside commode with CGA and use of w/w while requiring verbal prompts for slowing down due to being very impulsive increasing risk of falls. Pt transferred on/off bedside commode with CGA followed by standing pivot back to the recliner with CGA and use of w/w. Throughout all standing pivots pt required constant verbal prompts for NWB to RLE due to being only 75% compliant. Pt was left sitting upright in the recliner with call light in hand, tray table in place, and phone in reach. Continue with rec D/C plan to SNF. ALINA Hyde/Diony
[2020-02-18 09:07] LABS: ACID FAST SPEC PROCESSING Tissue Grinding (.)
[2020-02-18 09:07] LABS: ACID FAST SPEC PROCESSING Tissue Grinding (.)
[2020-02-18 09:07] LABS: ACID FAST SPEC PROCESSING Tissue Grinding (.)
--- NOTE | 2020-02-18 10:17 | NUR ---
MORPHINE GIVEN FOR C/O RT FOOT PAIN. RATES 9/10 ON PAIN SCALE. ATIVAN GIVEN FOR C/O ANXIETY. WILL MONITOR.
--- NOTE | 2020-02-18 11:20 | NUR ---
MORPHINE AND ATIVAN EFFECTIVE PER PT.
--- NOTE | 2020-02-18 11:42 | NUR ---
[facility] wound vac paperwork given to podiatry resident, Dr. Mahajan, for completion.
--- NOTE | 2020-02-18 21:02 | NUR ---
NOTIFIED OF BP 188/110 MANUAL. PT STATES SHE IS IN PAIN AND IS VERY COMMON FOR HER BP TO INCREASE WITH PAIN. WILL TREAT PAIN WITH IV MORPHINE AND WILL RETAKE BP. SAID HE WOULD BE TO THE FOR SHIFT ROUNDS SOON.
--- NOTE | 2020-02-18 21:08 | NUR ---
MORPHINE GIVEN FOR COMPLAINTS OF RT FOOT PAIN RATED 10/10, THROBBING AND CONSTANT. WILL MONITOR. CALL LIGHT IN REACH.
--- NOTE | 2020-02-18 21:48 | NUR ---
CALLED TO ROOM. PT STATES SHE IS STILL IN 10/10 PAIN. BP TAKEN, 182/90. WILL NOTIFT . PT SASKING FOR SOMETHING ELSE.
--- NOTE | 2020-02-18 21:51 | NUR ---
NOTIFIED OF BP 182/90 NAD REQUEST FOR MORE PAIN MEDS. SAID HE WOULD REVIEW HER CHART AND OK TO GIVE MOTRIN PRN ORDERED.
--- NOTE | 2020-02-18 21:58 | NUR ---
ATIVAN AND MOTRIN GIVEN PER ORDERS. WILL MONITOR FOR EFFECTIVENESS. CALL LIGHT IN REACH. WOUND VAC GOING WITH EASE.
--- NOTE | 2020-02-18 22:46 | NUR ---
SLEEPING, NO SXS OF DISTRESS NOTED. AROUSES EASILY TO VERBAL STIMULI. NO VOICED COMPLAINTS. CALL LIGHT IN REACH. ATIVAN AND MOTRIN SEEM TO BE EFFECTIVE.
--- NOTE | 2020-02-18 23:08 | NUR ---
BP 152/92 MANUAL FOLLOWING LABETALOL
--- NOTE | 2020-02-18 23:20 | NUR ---
AFTER TALKING WITH PT, SHE VOICED HOW SHE WAS NOT DEALING WITH THE OF HER SON AND FROM EARLIER THIS YEAR. VOICED SHE HAS NO ONE TO TALK AND DOES NOT HAVE GOOD COPING SKILLS. ASKED IF IT WAS OK FOR A PSYCH CONSULT IF PERMITTED BY DOCTORS, PT AGREED. NOTIFIED OF PATIENT WISHES. SAID HE WOULD PUT THE CONSULT IN.
--- NOTE | 2020-02-19 03:44 | NUR ---
24HR CHART CHECK COMPLETED
--- NOTE | 2020-02-19 05:41 | NUR ---
ATIVAN GIVEN FOR COMPLAINTS OF ANXIETY. WILL MONITOR. CALL LIGHT IN REACH.
--- NOTE | 2020-02-19 06:46 | NUR ---
PER PT, ATIVAN EFFECTIVE. CALL LIGHT IN REACH.
[2020-02-19 07:10] LABS: BASO % 0.3 % (0.0-1.0); EOS # 0.1 10*3/uL (0.0-0.4); EOS % 1.9 % (1.0-4.0); HEMATOCRIT 28.2 % (37.0-47.0); LYMPH # 1.3 10*3/uL (1.3-4.4); MEAN CELL VOLUME 74.4 fl (81.0-99.0); MEAN CORPUSCULAR HGB 22.7 pg (27.0-31.0); MEAN CORPUSCULAR HGB CONC 30.5 g/dl (33.0-37.0); MEAN PLATELET VOLUME 9.5 fl (9.6-12.3); MONO # 0.3 10*3/uL (0.1-1.0); MONO % 6.9 % (3.0-9.0); NEUT % 54.4 % (47.0-73.0); PLATELET COUNT AUTOMATED 205 10*3/uL (130-400); RED BLOOD COUNT 3.79 10*6/uL (4.10-5.10); RED CELL DISTRI WIDTH 15.4 % (0-14.5); WHITE BLOOD COUNT 3.6 10*3/uL (4.8-10.8)
[2020-02-19 07:25] LABS: ALBUMIN 2.2 gm/dl (3.1-4.5); ALKALINE PHOSPHATASE 71 U/L (45-117); BUN 4 mg/dl (7-24); CHLORIDE 103 mmol/L (98-107); CREATININE 0.41 mg/dL (0.55-1.02); POTASSIUM 3.3 mmol/L (3.5-5.1); SGOT/AST 26 IU/L (3-35); SGPT/ALT 16 U/L (12-78); SODIUM 135 mmol/L (136-145); TOTAL PROTEIN 7.4 gm/dL (6.4-8.2)
--- NOTE | 2020-02-19 09:59 | NUR ---
PT REPORTS PAIN IN HER FOOT, WILL MEDICATE PER THE MAR AND FOLLOW UP
[2020-02-19 12:00] VITALS: BP 168/96
--- NOTE | 2020-02-19 12:46 | NUR ---
PT REQUESTING MORE AND MORE PAIN MEDICATION. SHE NOW HAS DILAUDID ON ORDER AND SHE WOULD LIKE IT AROUND THE CLOCK.
--- NOTE | 2020-02-19 13:41 | NUR ---
PT STILL IN VERY BAD PAIN, 10/04 IN SEVERITY SHE SAYS. PT WILL BE TREATED WITH DILAUDID ORDERED. WILL FOLLOW UP
[2020-02-19 16:00] VITALS: BP 151/69
--- NOTE | 2020-02-19 17:26 | NUR ---
PT REPORTS PAIN AND ANXIETY. HER FOOT PAIN IS A 7/10 IN SEVERITY, AND SHE STATES THAT SHE IS VERY ANXIOUS. WILL MEDICATE PER THE MAR AND FOLLOW UP
--- NOTE | 2020-02-19 19:44 | NUR ---
PT GIVEN DILAUDID 1 MG FOR C/O PAIN TO RIGHT FOOT. WILL MONITOR FOR EFFECTIVENESS. CALL LIGHT IN REACH. PT VERBALIZES USE OF CALL LIGHT.
[2020-02-19 20:00] VITALS: BP 145/67
--- NOTE | 2020-02-19 20:44 | NUR ---
PT STATES THAT DILAUDID IS EFFECTIVE AT THIS TIME.
--- NOTE | 2020-02-19 22:36 | NUR ---
PT GIVEN ATIVAN FOR C/O ANXIETY. WILL MONITOR FOR EFFECTIVENESS. CALL LIGHT IN REACH.
--- NOTE | 2020-02-19 23:36 | NUR ---
ATIVAN EFFECTIVE PER PT.
[2020-02-20] VITALS: BP 139/62
--- NOTE | 2020-02-20 02:40 | NUR ---
PT GIVEN DILAUDID FOR C/O PAIN TO RIGHT LEG/FOOT. WILL MONITOR FOR EFFECTIVENESS. CALL LIGHT IN REACH.
--- NOTE | 2020-02-20 03:40 | NUR ---
DILAUDID EFFECTIVE AT THIS TIME.
--- NOTE | 2020-02-20 06:36 | NUR ---
PT C/O INCREASED PAIN FROM TRANSFERRING TO BEDSIDE COMMODE AND STATES THAT THE PERCOCET IS NOT HELPING MUCH. DILAUDID GIVEN AT THIS TIME PER EMAR ORDERS. WILL MONITOR FOR EFFECTIVENESS. CALL LIGHT IN REACH.
[2020-02-20 08:00] VITALS: BP 148/89
--- NOTE | 2020-02-20 10:27 | NUR ---
MEDICATED WITH PRN DILAUDID FOR CO RIGHT FOOT PAIN RATED A 10/10. WILL ASSESS EFFECTIVENESS.
--- NOTE | 2020-02-20 11:27 | NUR ---
DILAUDID UNEFFECTIVE PER PATIENT. PATIENT STATES "I DON'T KNOW WHY NOTHING WORKS."
[2020-02-20 12:00] VITALS: BP 129/81
--- NOTE | 2020-02-20 13:31 | NUR ---
MEDICATED WITH PRN DILAUDID PER PATIENT REQUEST FOR CO RIGHT FOOT PAIN. WILL ASSESS EFFECTIVENESS.
--- NOTE | 2020-02-20 14:31 | NUR ---
PER PATIENT "THAT DILAUDID DIDN'T HELP TOO MUCH."
--- NOTE | 2020-02-20 14:45 | NUR ---
INFORMED PATIENT BEING EXCESSIVE STATING NOTHING IS WORKING FOR HER PAIN AND REQUESTING I GET HER SOMETHING ELSE. PER HER WILL PUT SOMETHING IN .
--- NOTE | 2020-02-20 15:12 | NUR ---
PATIENT CRYING AND SAYING I NEED TO GET HER SOMETHING ELSE FOR PAIN AND SOMETHING DIFFERENT. DR. CUEVAS INFORMED. MEDICATED WITH ONE TIME TORADOL PER ORDER. WILL ASSESS EFFECTIVENESS. CALL LIGHT IN REACH.
[2020-02-20 16:00] VITALS: BP 128/83
--- NOTE | 2020-02-20 16:12 | NUR ---
TORADOL NOT EFFECTIVE PER PT.
--- NOTE | 2020-02-20 18:02 | NUR ---
PODIATRY RESIDENT NOTIFIED PATIENT STATES HER DRESSING FEELS TO TIGHT AND FEELS A LOT WORSE THAN IT DID AFTER BEING CHANGED TODAY.
--- NOTE | 2020-02-20 18:19 | NUR ---
RESIDENT [employer] LAW ENFORCEMENT AGENT AWARE PATIENT COMPLAINING THAT HER DRESSING IS TOO TIGHT. BEFORE LEAVING THEY ASKED HER IF EVERYTHING FELT OK AND PATIENT STATED "YES EVERYTHING WAS FINE". PER PODIATRY I CAN LOOSEN THE DRESSING A LITTLE BIT AND SEE IF THAT HELPS AND THEY WILL SEE THE PATIENT TOMORROW. WILL LOOSEN THE DRESSING. PATIENT APPEARS TO BE IN NO DISTRESS AT THIS TIME.
--- NOTE | 2020-02-20 19:37 | NUR ---
24 HR chart check completed.
[2020-02-20 20:00] VITALS: BP 149/86
--- NOTE | 2020-02-20 20:35 | NUR ---
DILAUDID GIVEN PER PT REQUEST FO CO RIGHT FOOT PAIN.
--- NOTE | 2020-02-20 20:47 | NUR ---
MEDICATED WITH PRN TRAZADONE PER PT REQUEST FOR CO TROUBLE SLEEPING.
--- NOTE | 2020-02-20 21:00 | NUR ---
ATIVAN GIVEN FOR CO ANXIETY.
--- NOTE | 2020-02-20 21:35 | NUR ---
DILAUDID NOT VERY EFFECTIVE PER PT.
--- NOTE | 2020-02-20 22:00 | NUR ---
ATIVAN EFFECTIVE PER PATIENT.
[2020-02-21 00:01] VITALS: BP 158/88
--- NOTE | 2020-02-21 04:02 | NUR ---
PRN DILAUDID GIVEN AT THIS TIME FOR PATIENT C/O RIGHT FOOT PAIN FROM GOING TO THE BEDSIDE COMMODE. WILL CONTINUE TO MONITOR.
[2020-02-21 08:00] VITALS: BP 180/93
--- NOTE | 2020-02-21 09:13 | NUR ---
PT MEDICATED WITH PRN DILAUDID FOR C/O PAIN RATED A 10/10. WILL MONITOR FOR EFFECTIVENESS.
[2020-02-21 09:42] VITALS: BP 150/91
--- NOTE | 2020-02-21 10:00 | NUR ---
PT ASLEEP IN BED AT THIS TIME. NO S/S OF DISTRESS NOTED. PRN DILAUDID APPEARS EFFECTIVE.
--- NOTE | 2020-02-21 11:43 | NUR ---
PT RATES PAIN 7/10 REQUEST PRN PAIN MEDICATION AND ATIVAN. BS [id number] COVG REQUIRED
[2020-02-21 12:00] VITALS: BP 164/98
[2020-02-21 16:00] VITALS: BP 154/96
--- NOTE | 2020-02-21 19:48 | NUR ---
PATIENT RESTING IN BED WATCHING TV WITH NO VISIBLE SIGNS OF DISTRESS. ASKING FOR DILAUDID. BED IN LOWEST POSITION, CALL LIGHT IN REACH
[2020-02-21 20:00] VITALS: BP 153/91
--- NOTE | 2020-02-21 20:25 | NUR ---
PATIENT SITTING IN BED WATCHING TV. MEDICATED WITH PRN DILAUDID FOR C/O PAIN RATED A "SOLID 9" ON A 0/10 PAIN SCALE.
--- NOTE | 2020-02-21 21:33 | NUR ---
PATIENT SITTING IN BED EATING CHIPS AND WATCHING TV. STATES SHE NEEDS HER ATIVAN BECAUSE SHE "IS SO ANXIOUS"
--- NOTE | 2020-02-21 21:42 | NUR ---
MEDICATED WITH PRN ATIVAN FOR ANXIOUSNESS AND TRAZADONE FOR SLEEPLESSNESS
--- NOTE | 2020-02-21 22:42 | NUR ---
PATIENT SLEEPING, MEDICATION SEEMS EFFECTIVE
[2020-02-22] VITALS: BP 148/95
--- NOTE | 2020-02-22 00:05 | NUR ---
PATIENT CALLED OUT REQUESTING DILAUDID. UPON ENTERING ROOM, PATIENT SLEEPING. PATIENT WOKEN UP FOR SCHEDULED PERCOCET. SHE STATES "WHEN CAN I HAVE MY DILAUDID". THIS RN INFORMED PATIENT THAT SHE CANNOT HAVE DILAUDID AND PERCOCET AT THE SAME TIME. PATIENT HOLDING MEDICINE CUP WITH PERCOCET AND FELL ASLEEP WHILE TALKING TO THIS RN. PATIENT WAS WOKEN UP TO SWALLOW PILLS AND FELL BACK TO SLEEP.
--- NOTE | 2020-02-22 05:12 | NUR ---
AFTER WAKING PATIENT UP TO TAKE SCHEDULED MOTRIN AND PERCOCET PATIENT SITS UP IN BED AND STATES "WHEN CAN I GET THE STUFF THAT GOES IN HERE" WHILE TAPPING HER ARM. INFORMED PATIENT THAT SHE CAN HAVE IT IN ONE HOUR IF SHE IS STILL IN SEVERE PAIN. PATIENT VERBALIZED UNDERSTANDING
--- NOTE | 2020-02-22 06:04 | NUR ---
MEDICATED WITH PRN DILAUDID FOR C/O 10/10 PAIN ON A 0/10 PAIN SCALE
[2020-02-22 06:40] LABS: BASO % 0.3 % (0.0-1.0); EOS # 0.1 10*3/uL (0.0-0.4); EOS % 2.3 % (1.0-4.0); HEMATOCRIT 26.9 % (37.0-47.0); LYMPH % 32.1 % (27.0-41.0); MEAN CELL VOLUME 76.2 fl (81.0-99.0); MEAN CORPUSCULAR HGB 22.7 pg (27.0-31.0); MEAN CORPUSCULAR HGB CONC 29.7 g/dl (33.0-37.0); MEAN PLATELET VOLUME 11.8 fl (9.6-12.3); MONO # 0.2 10*3/uL (0.1-1.0); MONO % 6.4 % (3.0-9.0); NEUT # 1.8 10*3/uL (2.3-7.9); NEUT % 58.6 % (47.0-73.0); PLATELET COUNT AUTOMATED 50 10*3/uL (130-400); RED BLOOD COUNT 3.53 10*6/uL (4.10-5.10); RED CELL DISTRI WIDTH 15.5 % (0-14.5)
[2020-02-22 07:09] LABS: BUN 15 mg/dl (7-24)
--- NOTE | 2020-02-22 07:44 | NUR ---
OCCUPATIONAL THERAPY CO-SIGN I approve of the Occupational Therapy notes written above. OLIVERIO HU, OTR/L
--- NOTE | 2020-02-22 07:54 | NUR ---
Received completed and signed paperwork from podiatry for wound vac; Faxed paperwork/clinicals to [facility] "priority" for wound vac. Patient will be referred to [facility]. As per Dr. Lima, patient can go home on PO antibiotics.
[2020-02-22 08:00] VITALS: BP 146/86
--- NOTE | 2020-02-22 08:16 | NUR ---
OT NOTE Pt was seen this A.M. 1:1 for 15 minute OT session. Upon arrival pt was supine in bed. Pt identified by name and and had complaints of 8/10 R foot pain. Pt presented to therapy with wound vac to RLE which remained in place throughout the entire session. Prior to activity pt was able to self recall and verbalize NWB to RLE. Pt transferred supine to sit EOB with supervision. Sit to stand completed from bed level with CGA and use of w/w for UE support. FUnctional mobility completed to the bathroom with CGA and use of w/w. Throughout pt required constant verbal prompts for slowing down due to being impulsive, increasing risk of falls. Pt presented with poor carry over. Pt transferred on to the standard commode with CGA for safety. Clothing management completed with CGA and toilet hygiene completed with distant supervision while seated. Pt transferred off standard commode with CGA for safety. Throughout pt presented with F standing balance. Functional mobility completed back to the EOB with CGA and use of w/w. Throughout pt continued to present with poor safety awareness due to being impulsive. Pt did maintain 100% compliance of NWB to RLE throughout all tasks. Pt transferred back into bed sit to supine with supervision and declined other tasks at this time. Pt was left supine in bed with call light in hand, tray table in place, and phone in reach. Continue with rec D/C plan to SNF. HEATHER Hyde
--- NOTE | 2020-02-22 09:08 | NUR ---
PHYSICAL THERAPY Patient presented to therapy ijn supine in bed with head of bed elevated and bed alarm off. Patient does not have any IVs. Patient has a wound vac in the R LE and she is NWB on the R LE. Patient gives informed consent for treatment. Patient was identified by name and on wristband. Patient performed supine < > sitting on EOB with SBA. Patient sat on EOB with SBA. Patient STS from EOB with SBA. Patient ambulated with Wh Walker and Close Supervision - CGA for 20' x 2 with no LOB or other difficulty. Patient was able to maintain the NWB on the R LE during gait. Patient STS from low chair with CGA. Patient required only minimal verbal cues for proper technique. Patient completed sit EOB to supine in bed with SBA. Patient was left in supine in bed with head of bed elevated and call light within reach. Patient was 1:1 with this NEWS LIBRARIAN for 18 MINUTES TOTAL. ALINA Rangel was present as witness to this treatment. GHADA MCNEILL NEWS LIBRARIAN
[2020-02-22 11:23] LABS: BASO % 0.3 % (0.0-1.0); EOS # 0.1 10*3/uL (0.0-0.4); EOS % 2.4 % (1.0-4.0); HEMATOCRIT 29.1 % (37.0-47.0); LYMPH # 0.9 10*3/uL (1.3-4.4); LYMPH % 29.8 % (27.0-41.0); MEAN CORPUSCULAR HGB 22.5 pg (27.0-31.0); MEAN CORPUSCULAR HGB CONC 29.6 g/dl (33.0-37.0); MEAN PLATELET VOLUME 11.9 fl (9.6-12.3); MONO # 0.2 10*3/uL (0.1-1.0); MONO % 5.9 % (3.0-9.0); NEUT # 1.8 10*3/uL (2.3-7.9); NEUT % 61.6 % (47.0-73.0); PLATELET COUNT AUTOMATED 61 10*3/uL (130-400); RED BLOOD COUNT 3.83 10*6/uL (4.10-5.10); RED CELL DISTRI WIDTH 15.6 % (0-14.5); WHITE BLOOD COUNT 2.9 10*3/uL (4.8-10.8)
--- NOTE | 2020-02-22 11:46 | NUR ---
received home health order and faxed referral to [facility]. Advised D/C tomorrow 02/23/2020, waiting on approval for wound vac from [facility]
[2020-02-22 12:00] VITALS: BP 164/99
--- NOTE | 2020-02-22 14:42 | NUR ---
Still waiting on approval from patients insurance for wound vac.
[2020-02-22 16:00] VITALS: BP 171/99
[2020-02-22 20:00] VITALS: BP 161/103
--- NOTE | 2020-02-22 21:04 | NUR ---
PATIENT C/O FEELING ANXIOUS, NOT ABLE TO SLEEP AND C/O PAIN RIGHT FOOT RATED "7-8" ATIVAN, TRAZADONE AND DILAUDID GIVEN PER ORDER FOR THESE SYMPTOMS. SEE MAR.
[2020-02-22 21:30] VITALS: BP 164/88
--- NOTE | 2020-02-22 22:00 | NUR ---
ATIVAN, TRAZADONE AND DILAUDID EFFECTIVE FOR ANXIETY, INSOMNIA AND PAIN PER PT.
[2020-02-23] VITALS: BP 139/89
--- NOTE | 2020-02-23 04:18 | NUR ---
DILAUDID GIVEN PER ORDER FOR PAIN RIGHT FOOT RATED "8" SEE MAR.
--- NOTE | 2020-02-23 05:10 | NUR ---
PATIENT RESTING QUIETLY, EYES CLOSED. DILAUDID EFFECTIVE.
--- NOTE | 2020-02-23 05:26 | NUR ---
24 HR chart check completed.
[2020-02-23 07:17] LABS: BASO % 0.3 % (0.0-1.0); EOS # 0.1 10*3/uL (0.0-0.4); EOS % 2.6 % (1.0-4.0); HEMATOCRIT 27.1 % (37.0-47.0); LYMPH # 1.4 10*3/uL (1.3-4.4); LYMPH % 35.1 % (27.0-41.0); MEAN CORPUSCULAR HGB 22.9 pg (27.0-31.0); MEAN CORPUSCULAR HGB CONC 31.7 g/dl (33.0-37.0); MEAN PLATELET VOLUME 11.9 fl (9.6-12.3); MONO # 0.2 10*3/uL (0.1-1.0); MONO % 5.7 % (3.0-9.0); NEUT # 2.2 10*3/uL (2.3-7.9); NEUT % 55.5 % (47.0-73.0); PLATELET COUNT AUTOMATED 77 10*3/uL (130-400); RED BLOOD COUNT 3.76 10*6/uL (4.10-5.10); WHITE BLOOD COUNT 3.9 10*3/uL (4.8-10.8)
[2020-02-23 07:20] LABS: MEAN CELL VOLUME 72.1 fl (81.0-99.0)
[2020-02-23 08:00] VITALS: BP 145/91
--- NOTE | 2020-02-23 08:09 | NUR ---
PT MEDICATED WITH IV DILAUDID SLOWLY PER PRN ORDER FOR C/O RIGHT FOOT PAIN. RATES PAIN 10/. WILL MONITOR EFFECTIVENESS.
--- NOTE | 2020-02-23 08:10 | NUR ---
OT NOTE Pt was seen this A.M. 1:1 for 15 minute OT session. Upon arrival pt was supine in bed. Pt identified by name and and had complaints of 10/10 R foot pain. Pt presented to therapy with wound vac to RLE which remained in place throughout the entire session. Pt was able to self recall and verbalize NWB to RLE. Pt declined functional mobility at this time due to pain however did agree to light activity bedside. Pt transferred supine to sit EOB with supervision. Sit to stand completed from bed level with SBA. Challenged pt's static standing tolerance needed for increased I in self care tasks and functional transfers. Pt was able to tolerate aprox 45 seconds at a time before sitting due to fatigue. Throughout pt was 100% compliant with NWB to RLE. Pt's dynamic standing balance was challenged and pt was able to maintain F+/G- standing balance throughout. Pt then completed standing pivot from the EOB <> bedside commode with SBA while maintaining NWB to RLE 100%. Throughout pt was again educated on slowing down due to being impulsive and increasing risk of falls. Pt transferred back into bed sit to supine with supervision. There she was left with call light in hand,. tray table in place, and phone in reach. Continue with rec D/C plan to SNF. HEATHER Hyde
--- NOTE | 2020-02-23 09:05 | NUR ---
PHYSICAL THERAPY Patient presented to therapy in supine with head of bed elevated and bed alarm off. Patient is complaining about the room not being cleaned recently. Patient complains about her increased pain level to a 10/10 and the Nurses not giving her pain medication. Patient gives informed consent for treatment. Patient was identified by name and on wristband. Patient is not on Sspo2 , IVs and does not have a catheter. Patient has a wound vac in the L LE. Patient performd supine < > sitting on EOB with SBA. Patient sat on EOB with SBA. Patient STS from EOB with CGA. Patient required verbal cues amd CGA for proper technique. Patient had increased pain with all activity. Patient is waiting on her pain meds. Patient performed LAQs, marches and heel/toe raises on the R LE A X 10 REPS for strengtheing the LEs. Patient declined to ambulate due to 10/10 pain. RN was notified about patient's pain level. Patient was 1:1 with this FINAL CLEANER fr 16 minutes total. GHADA MCNEILL FINAL CLEANER technique while performing the SPT to commode.
--- NOTE | 2020-02-23 09:09 | NUR ---
DILAUDID EFFECTIVE AT THIS TIME.
--- NOTE | 2020-02-23 09:18 | NUR ---
Contacted [facility]; they stated they needed more information. Information requested was provided. Waiting on insurance to approve. Contacted [facility], they have accepted this patient and have her on the schedule for tomorrow. They stated if patient doesn't get approval for wound vac today and she goes home with a wet/dry dressing they will tend to that until the wound vac arrives. They will apply wound vac.
--- NOTE | 2020-02-23 09:27 | NUR ---
[facility] stating the wound vac is approved and will be delivered before 2 PM today. OCTAVIO Mackay notified.
--- NOTE | 2020-02-23 10:46 | NUR ---
ATIVAN GIVEN PER PRN ORDER FOR C/O ANXIETY. WILL MONITOR EFFECTIVENESS.
--- NOTE | 2020-02-23 11:46 | NUR ---
ATIVAN HELPING ANXIETY PER PT. WILL CONTINUE TO MONITOR.
[2020-02-23 12:00] VITALS: BP 150/86
--- NOTE | 2020-02-23 12:17 | NUR ---
[facility] STAFF IN TO SEE PATIENT. PATIENT IS WANTING [facility]. [facility] STAFF WILL PROVIDE PATIENT WITH REFERRAL OPTIONS FOR HER AFTERCARE PLAN. DORITA ARTHUR B.A. [employer] BI DEVELOPER
--- NOTE | 2020-02-23 13:00 | NUR ---
Due to patient need for IV antibiotics contacted [facility]. They are stating they have a waiting list for their own patients inside [facility] and are not accepting any outside patients at this time. Contacted [place] in [facility], spoke with Remedios. She stated the [facility] location would be considered "local" for this patient and [facility] has a rule in place where they will not accept local patients that are IV drug users. This would increase the incidence of signing out AMA and/or having "dealers" come to the facility; therefore the patient can only be accepted 2 or more hours outside of her local area. They do have beds available at their Agency location so I faxed patients referral. Remedios will review and send it to [facility] for approval. Waiting for approval.
--- NOTE | 2020-02-23 13:57 | NUR ---
Remedios from [place] returned call and stated her corportate office is only willing to look a the referral once patient is off suboxone for 72 hours to see how patient is tolerating; she will also require nurses notes. Unfortunately this takes us to Saturday02/29/2020 before they will review. OCTAVIO Salomon notified.
[2020-02-23 16:00] VITALS: BP 166/83
--- NOTE | 2020-02-23 18:18 | NUR ---
PT MEDICATED WITH PO ATIVAN PER PRN ORDER FOR C/O ANXIETY. WILL MONITOR EFFECTIVENESS.
[2020-02-23 20:00] VITALS: BP 160/88
[2020-02-24] VITALS: BP 155/95
[2020-02-24 06:54] LABS: HEMATOCRIT 27.8 % (37.0-47.0); MEAN CELL VOLUME 73.5 fl (81.0-99.0); MEAN CORPUSCULAR HGB CONC 31.3 g/dl (33.0-37.0); MEAN PLATELET VOLUME 11.5 fl (9.6-12.3); PLATELET COUNT AUTOMATED 91 10*3/uL (130-400); RED BLOOD COUNT 3.78 10*6/uL (4.10-5.10); RED CELL DISTRI WIDTH 16.4 % (0-14.5); WHITE BLOOD COUNT 3.7 10*3/uL (4.8-10.8)
--- NOTE | 2020-02-24 07:20 | NUR ---
OT NOTE Attempted to see pt this A.M. for OT session and upon arrival pt was supine in bed. Pt declined therapy at this time due to reports of 10/10 pain in her RLE and voiced frustration with care and discharge planning. Offered for pt to speak to someone about complaints and pt declined. Requesting to rest at this time. Will check back at a later time and continue with POC as able. ALINA Hyde/Diony
[2020-02-24 07:47] LABS: MICROCYTOSIS SLIGHT; PLATELET SUFFICIENCY LOW (NORMAL); TOTAL CELLS COUNTED 100 #CELLS
[2020-02-24 08:00] VITALS: BP 186/110
--- NOTE | 2020-02-24 08:03 | NUR ---
ASAEL ROSS CHILD AND FAMILY SERVICES WORKER NOTIFIED OF 186110 BP ORDERED RECIEVED.
--- NOTE | 2020-02-24 08:43 | NUR ---
ativan 0.5mg given for complaint of anxiety
--- NOTE | 2020-02-24 09:17 | NUR ---
PHYSICAL THERAPY Patient presented to therapy in supine at 07:12 AM. Patient declined therapy session at this time due to complaints of pain and not feeling well. Will check back later with patient. GHADA MCNEILL TRANSIT POLICE OFFICER
--- NOTE | 2020-02-24 09:42 | NUR ---
ADITYA KERNS, AT BEDSIDE DISCUSSING PLAN OF CARE WITH PT.PT VOICES NO NEEDS. RESPS EASY ON RA. CALL LIGHT IN REACH.
[2020-02-24 12:00] VITALS: BP 107/48; BP 134/83
--- NOTE | 2020-02-24 12:18 | NUR ---
[facility] STAFF IN TO SEE PATIENT. PATIENT IS WANTING TO FOLLOW UP WITH [facility] FOR HER AFTERCARE PLAN. [facility] STAFF WILL ALSO PROVIDE PATIENT WITH SELF-HELP MEETINGS IN HER LOCAL AREA. DORITA ARTHUR B.A. FLAME ANNEALING MACHINE SETTER
--- NOTE | 2020-02-24 13:17 | NUR ---
OT NOTE Attempted to see pt this P.M. for OT session and upon arrival pt was supine in bed eating her lunch. Pt declined therapy at this time due to reports of 10/10 RLE pain. Pt continued to decline all tasks presented to her. No treatment provided. Will check back at a later time/date and continue with POC as able. ALINA Hyde/Diony
--- NOTE | 2020-02-24 13:17 | NUR ---
PHYSICAL THERAPY Patient presented to therapy in supine with report of 10/10 pain in the R LE and not wanting to do therapy because of the pain. Will check back with patient at a later date. GHADA MCNEILL DRY CLEANING ATTENDANT
--- NOTE | 2020-02-24 13:23 | NUR ---
Patient is now able to go home with wound vac and PO antibiotics. Notified [facility] that patient will discharge to home on Saturday with her wound vac on. They scheduled her for Saturday. Note: Patients wound vac delivered from [facility] is at the nurses station for [facility].
[2020-02-24 16:00] VITALS: BP 134/86
[2020-02-24 20:00] VITALS: BP 135/84
[2020-02-25] VITALS: BP 130/80
--- NOTE | 2020-02-25 02:12 | NUR ---
24 HR chart check completed.
--- NOTE | 2020-02-25 07:30 | NUR ---
OT NOTE Pt was seen this A.M. 1:1 for 15 minute OT session. Upon arrival pt was supine in bed. Pt identified by name and and had complaints of 10/10 R foot pain. Pt presented to therapy with wound vac to RLE which remained in place throughout the entire session. Prior to activity she was able to self recall and verbalize NWB to RLE. Pt transferred supine to sit EOB independent. Pt reported that she is now going home with home health services, resulting in pt being educated on wound vac management with transfers and mobility. Pt was educated and able to complete wound vac placement onto the walker for mobility. Sit to stand then completed from bed level with SBA and use of w/w followed by functional mobility to the bathroom with SBA and use of w/w. Throughout pt was 100% compliant with NWB to RLE however did require verbal prompts for slowing down due to being impulsive and increasing risk of falls. Pt transferred on/off standard commode with SBA for safety followed by functional mobility back to the EOB with SBA and use of w/w. Upon arrival back to the EOB pt reports quick onset of fatigue. Pt presented with F+ dynamic standing balance throughout. Pt was left sitting EOB with call light in hand, tray table in place, and phone in reach. Continue with rec D/C plan to SNF. ALINA Hyde/Diony
[2020-02-25 07:33] LABS: BUN 22 mg/dl (7-24); CHLORIDE 104 mmol/L (98-107); CREATININE 0.58 mg/dL (0.55-1.02); POTASSIUM 4.5 mmol/L (3.5-5.1); SODIUM 138 mmol/L (136-145)
[2020-02-25 07:55] LABS: BASO % 0.4 % (0.0-1.0); EOS # 0.1 10*3/uL (0.0-0.4); HEMATOCRIT 32.1 % (37.0-47.0); LYMPH # 1.8 10*3/uL (1.3-4.4); LYMPH % 38.6 % (27.0-41.0); MEAN CORPUSCULAR HGB 23.2 pg (27.0-31.0); MEAN CORPUSCULAR HGB CONC 29.9 g/dl (33.0-37.0); MONO # 0.4 10*3/uL (0.1-1.0); MONO % 7.9 % (3.0-9.0); NEUT # 2.3 10*3/uL (2.3-7.9); NEUT % 51.1 % (47.0-73.0); PLATELET COUNT AUTOMATED 112 10*3/uL (130-400); RED BLOOD COUNT 4.13 10*6/uL (4.10-5.10); RED CELL DISTRI WIDTH 16.8 % (0-14.5); WHITE BLOOD COUNT 4.6 10*3/uL (4.8-10.8)
[2020-02-25 07:56] LABS: MEAN CELL VOLUME 77.7 fl (81.0-99.0)
[2020-02-25 08:00] VITALS: BP 125/79
--- NOTE | 2020-02-25 08:39 | NUR ---
PATIENT'S APPOINTMENT WITH [employer] [facility] IN THE [place] OFFICE WILL BE February AT 9AM. [facility] REVIEW AFTERCARE PLAN WITH PATIENT. DORITA ATRHUR B.A. LEASING PROFESSIONAL
--- NOTE | 2020-02-25 08:42 | NUR ---
PHYSICAL THERAPY Patient presented to therapy in supine with head of bed elevated and bed alarm OFF. Patient with report of 10/10 PAIN in the R LE. Patient gives informed consent for treatment. Patient was identified by name and on wristband. Patient performed supine > sitting on EOB with SBA. Patient completed STS from EOB with SBA. Patient ambulated with Wh Walker and SBA for 25' x 1 and then sat on low chair with SBA. Patient performed STS out of low chair with SBA. Patient ambulated with Wh Walker and CGA maintaining the NWB of the R LE for 20' x 1. Patient had no LOB or other difficulty. Patient WAS LEFT sitting on EOB with call light within reach and tray table in front of patient. Patient was 1:1 with this FLOOR CLERK for 15 minutes total. ALINA Hidalgo present as witness to this treatment. GHADA MCNEILL FLOOR CLERK
[2020-02-25] MEDS ORDERED: VITAMIN D350 MC2 PO (09:53)
[2020-02-25] MEDS ORDERED: VITAMIN B-1100 M1 PO (09:53)
[2020-02-25] MEDS ORDERED: MOTRIN 600 MG E4 TAB PO (09:53)
[2020-02-25] MEDS ORDERED: THERA TABLET400 MCG PO (09:53)
[2020-02-25] MEDS ORDERED: DOXYCYCLINE MO100 M1 PO ×2 (09:53→10:19)
[2020-02-25] MEDS ORDERED: NATURE'S BLEND F1 MG PO (09:53)
[2020-02-25] MEDS ORDERED: OMNICEF300 MG PO ×2 (09:53→10:19)
--- NOTE | 2020-02-25 11:45 | NUR ---
Discharge instructions reviewed with patient/family. Patient receptive and verbalizes understanding. Follow-up care arranged. Written instructions given to patient/family.PT D/C'D WITH HOME WOUND VAC INTACT TO RIGHT FOOT. CROW ALLAN
--- NOTE | 2020-02-25 12:29 | NUR ---
PT RETURNED AT THIS RN'S REQUEST AND MIDLINE D/C'D PER PROTOCOL. PT TOLERATED WELL.
--- NOTE | 2020-02-25 12:55 | NUR ---
PHYSICAL THERAPY CO-SIGN I approve of the Phyical Therapy notes written above. Bree Israel PT DPT
--- NOTE | 2020-02-25 13:01 | NUR ---
OCCUPATIONAL THERAPY CO-SIGN I approve of the Occupational Therapy notes written above. OLIVERIO HU, OTR/L
== END 2020-02-25 11:42 | disposition home or self-care (01) | DRG 853 ==
LOC: ED 02:30 → EDHOLD 05:51 → 5E 05:51 → EDHOLD 17:41 → 5E 22:51
PROVIDERS: Internal Medicine; Podiatrist; Registered Nurse; Student in an Organized Health Care Education/Training Program; ADMIT Family Medicine; ATTEND Family Medicine
PROC: 0QBN0ZX Excision of Right Metatarsal, Open Approach, Diagnostic (ICD-10-PCS; principal; 2020-02-16)
PROC: 0QBN0ZZ Excision of Right Metatarsal, Open Approach (ICD-10-PCS; 2020-02-16)
PROC: 0J9Q0ZZ Drainage of Right Foot Subcutaneous Tissue and Fascia, Open Approach (ICD-10-PCS; 2020-02-16)
PROC: 0LBV0ZZ Excision of Right Foot Tendon, Open Approach (ICD-10-PCS; 2020-02-16)
PROC: 05HB33Z Insertion of Infusion Device into Right Basilic Vein, Percutaneous Approach (ICD-10-PCS; 2020-02-17)
DX: A41.9 Sepsis, unspecified organism (principal); E43 Unspecified severe protein-calorie malnutrition; A48.0 Gas gangrene; F11.13 Opioid abuse with withdrawal; E87.1 Hypo-osmolality and hyponatremia; E11.52 Type 2 diabetes mellitus with diabetic peripheral angiopathy with gangrene; L02.611 Cutaneous abscess of right foot; L97.319 Non-pressure chronic ulcer of right ankle with unspecified severity; M86.8X7 Other osteomyelitis, ankle and foot; L03.115 Cellulitis of right lower limb; M06.9 Rheumatoid arthritis, unspecified; E11.65 Type 2 diabetes mellitus with hyperglycemia; I25.10 Atherosclerotic heart disease of native coronary artery without angina pectoris; I10 Essential (primary) hypertension; E78.2 Mixed hyperlipidemia; E83.51 Hypocalcemia; E66.9 Obesity, unspecified; B95.62 Methicillin resistant Staphylococcus aureus infection as the cause of diseases classified elsewhere; B96.4 Proteus (mirabilis) (morganii) as the cause of diseases classified elsewhere; D69.6 Thrombocytopenia, unspecified; R65.20 Severe sepsis without septic shock; M72.9 Fibroblastic disorder, unspecified; E11.69 Type 2 diabetes mellitus with other specified complication; F32.9 Major depressive disorder, single episode, unspecified; M19.90 Unspecified osteoarthritis, unspecified site; Z88.2 Allergy status to sulfonamides; Z90.49 Acquired absence of other specified parts of digestive tract; Z90.710 Acquired absence of both cervix and uterus; Z95.5 Presence of coronary angioplasty implant and graft; Z87.440 Personal history of urinary (tract) infections; Z20.828 Contact with and (suspected) exposure to other viral communicable diseases; Z68.24 Body mass index [BMI] 24.0-24.9, adult

== ENCOUNTER 2020-03-13 02:55 | Emergency (ER) | payer OTHER ==
[~2020-03-13] VITALS: Ht 152.4 cm; Wt 59.0 kg
[~2020-03-13 02:55] MED LIST changes: +DOXYCYCLINE MO100 M1 PO; +MOTRIN 600 MG E4 TAB PO; +NATURE'S BLEND F1 MG PO; +THERA TABLET400 MCG PO; +VITAMIN B-1100 M1 PO; +VITAMIN D350 MC2 PO
[2020-03-13] MEDS ORDERED: HYDROCODON-ACE1 EACH PO (05:57)
== END 2020-03-13 06:03 | disposition home or self-care (01) ==
LOC: ED 02:55
DX: S42.211A Unspecified displaced fracture of surgical neck of right humerus, initial encounter for closed fracture (principal); S16.1XXA Strain of muscle, fascia and tendon at neck level, initial encounter; S09.90XA Unspecified injury of head, initial encounter; E11.9 Type 2 diabetes mellitus without complications; M06.9 Rheumatoid arthritis, unspecified; I73.9 Peripheral vascular disease, unspecified; I25.10 Atherosclerotic heart disease of native coronary artery without angina pectoris; E78.5 Hyperlipidemia, unspecified; I10 Essential (primary) hypertension; Z88.2 Allergy status to sulfonamides; Z79.899 Other long term (current) drug therapy; Z79.2 Long term (current) use of antibiotics; Z90.711 Acquired absence of uterus with remaining cervical stump; Z90.49 Acquired absence of other specified parts of digestive tract; W19.XXXA Unspecified fall, initial encounter; Y93.89 Activity, other specified; Y92.091 Bathroom in other non-institutional residence as the place of occurrence of the external cause; Y99.8 Other external cause status

== ENCOUNTER 2020-09-20 17:59 | Inpatient (IN) | payer OTHER ==
[~2020-09-20] VITALS: Ht 152.4 cm; Wt 56.7 kg
[~2020-09-20 17:59] MED LIST changes: +HYDROCODON-ACE1 EACH PO
[2020-09-20 18:05] VITALS: BP 131/87
[2020-09-20 19:08] LABS: HEMATOCRIT 38.6 % (37.0-47.0); MEAN CELL VOLUME 69.9 fl (81.0-99.0); MEAN CORPUSCULAR HGB 21.2 pg (27.0-31.0); MEAN CORPUSCULAR HGB CONC 30.3 g/dl (33.0-37.0); MEAN PLATELET VOLUME 9.9 fl (9.6-12.3); PLATELET COUNT AUTOMATED 133 10*3/uL (130-400); RED BLOOD COUNT 5.52 10*6/uL (4.10-5.10); WHITE BLOOD COUNT 4.5 10*3/uL (4.8-10.8)
[2020-09-20 19:27] LABS: ALBUMIN 2.6 gm/dl (3.1-4.5); ALKALINE PHOSPHATASE 95 U/L (45-117); BUN 6 mg/dl (7-24); CHLORIDE 94 mmol/L (98-107); CREATININE 0.85 mg/dL (0.55-1.02); POTASSIUM 2.9 mmol/L (3.5-5.1); SGOT/AST 28 IU/L (3-35); SGPT/ALT 18 U/L (12-78); SODIUM 128 mmol/L (136-145); TOTAL PROTEIN 7.6 gm/dL (6.4-8.2)
[2020-09-20 19:48] LABS: MICROCYTOSIS SLIGHT; PLATELET SUFFICIENCY NORMAL (NORMAL); TOTAL CELLS COUNTED 100 #CELLS
[2020-09-20 19:49] LABS: POLYCHROMASIA SLIGHT
[2020-09-20 20:49] VITALS: BP 108/81
[2020-09-20 23:42] VITALS: BP 116/78
[2020-09-21 00:22] LABS: BUN 6 mg/dl (7-24); CHLORIDE 95 mmol/L (98-107); CREATININE 0.82 mg/dL (0.55-1.02); POTASSIUM 3.2 mmol/L (3.5-5.1); SODIUM 124 mmol/L (136-145)
[2020-09-21 01:51] VITALS: BP 108/81
[2020-09-21 02:30] VITALS: BP 143/89
[2020-09-21 05:59] LABS: BUN 7 mg/dl (7-24); CHLORIDE 104 mmol/L (98-107); CREATININE 0.54 mg/dL (0.55-1.02); POTASSIUM 3.3 mmol/L (3.5-5.1); SODIUM 135 mmol/L (136-145)
[2020-09-21 08:00] VITALS: BP 144/92
[2020-09-21 12:00] VITALS: BP 142/80
[2020-09-21 16:00] VITALS: BP 140/88; BP 148/93
[2020-09-21 20:00] VITALS: BP 180/97
[2020-09-22] VITALS: BP 139/88
[2020-09-22 08:00] VITALS: BP 152/92; BP 170/92
[2020-09-22 12:00] VITALS: BP 169/92
[2020-09-22 20:00] VITALS: BP 201/100
[2020-09-23] VITALS: BP 192/104
[2020-09-23 04:03] VITALS: BP 165/95
[2020-09-23 08:00] VITALS: BP 158/93
[2020-09-23] MEDS ORDERED: METOCLOPRAMIDE5 MG PO (11:52)
[2020-09-23 12:00] VITALS: BP 150/88
== END 2020-09-23 16:43 | disposition home or self-care (01) | DRG 637 ==
LOC: ED 17:59 → EDHOLD 09-21 00:55 → 4E 09-21 00:55
PROVIDERS: Internal Medicine; Student in an Organized Health Care Education/Training Program; ADMIT Internal Medicine; ATTEND Internal Medicine
DX: E11.621 Type 2 diabetes mellitus with foot ulcer (principal); E43 Unspecified severe protein-calorie malnutrition; E87.1 Hypo-osmolality and hyponatremia; E11.43 Type 2 diabetes mellitus with diabetic autonomic (poly)neuropathy; K31.84 Gastroparesis; E78.2 Mixed hyperlipidemia; E11.51 Type 2 diabetes mellitus with diabetic peripheral angiopathy without gangrene; M06.9 Rheumatoid arthritis, unspecified; I25.10 Atherosclerotic heart disease of native coronary artery without angina pectoris; I10 Essential (primary) hypertension; E11.65 Type 2 diabetes mellitus with hyperglycemia; F41.1 Generalized anxiety disorder; D50.9 Iron deficiency anemia, unspecified; E87.6 Hypokalemia; B95.4 Other streptococcus as the cause of diseases classified elsewhere; E88.09 Other disorders of plasma-protein metabolism, not elsewhere classified; S81.801A Unspecified open wound, right lower leg, initial encounter; X58.XXXA Exposure to other specified factors, initial encounter; Y93.89 Activity, other specified; Y92.89 Other specified places as the place of occurrence of the external cause; Y99.8 Other external cause status; Z88.2 Allergy status to sulfonamides; Z90.710 Acquired absence of both cervix and uterus; Z90.49 Acquired absence of other specified parts of digestive tract; Z95.5 Presence of coronary angioplasty implant and graft

== ENCOUNTER 2021-06-01 23:02 | Inpatient (IN) | payer OTHER ==
[~2021-06-01] VITALS: Ht 152.4 cm; Wt 62.1 kg
[~2021-06-01 23:02] MED LIST changes: +METOCLOPRAMIDE5 MG PO
[2021-06-01 23:08] VITALS: BP 135/67
[2021-06-01 23:33] LABS: BASO % 0.4 % (0.0-1.0); EOS # 0.1 10*3/uL (0.0-0.4); EOS % 0.9 % (1.0-4.0); HEMATOCRIT 35.8 % (37.0-47.0); LYMPH # 2.2 10*3/uL (1.3-4.4); LYMPH % 31.5 % (27.0-41.0); MEAN CELL VOLUME 76.7 fl (81.0-99.0); MEAN CORPUSCULAR HGB 24.4 pg (27.0-31.0); MEAN CORPUSCULAR HGB CONC 31.8 g/dl (33.0-37.0); MEAN PLATELET VOLUME 11.2 fl (9.6-12.3); MONO # 0.7 10*3/uL (0.1-1.0); MONO % 10.4 % (3.0-9.0); NEUT % 56.5 % (47.0-73.0); PLATELET COUNT AUTOMATED 217 10*3/uL (130-400); RED BLOOD COUNT 4.67 10*6/uL (4.10-5.10); RED CELL DISTRI WIDTH 14.6 % (0-14.5)
[2021-06-01 23:49] LABS: ALKALINE PHOSPHATASE 114 U/L (45-117); BUN 9 mg/dl (7-24); CHLORIDE 89 mmol/L (98-107); CREATININE 1.13 mg/dL (0.55-1.02); POTASSIUM 4.4 mmol/L (3.5-5.1); SGOT/AST 45 IU/L (3-35); SGPT/ALT 79 U/L (12-78); SODIUM 125 mmol/L (136-145); TOTAL PROTEIN 7.7 gm/dL (6.4-8.2)
[2021-06-01 23:50] LABS: ACETAMINOPHEN (TYLENOL) < 5.0 ug/ml (10-30); ETHYL ALCOHOL < 3.0 mg/dl (<3)
[2021-06-02] VITALS (8 sets, daily range): BP systolic 90–158; BP diastolic 52–90
[2021-06-02 00:33] LABS: BILIRUBIN Negative (Negative); BLOOD Negative (Negative); CLARITY Clear (Clear); COLOR Yellow (Yellow); GLUCOSE 3+ (Negative); KETONE Negative (Negative); LEUKO ESTERASE Negative (Negative); NITRITE Negative (Negative); SPECIFIC GRAVITY >= 1.030 (1.001-1.030); UROBILINOGEN 0.2 E.U./dl (0.0-1.0)
[2021-06-02 00:43] LABS: URINE AMPHETAMINES < 1000 (1000ng/ml); URINE BARBITURATES < 200 (200ng/ml); URINE BENZODIAZEPINES < 200 (200ng/ml); URINE CANNABINOIDS (THC) < 50 (50ng/ml); URINE COCAINE < 300 (300ng/ml); URINE METHADONE < 300 (300ng/ml); URINE OPIATES < 300 (300ng/ml)
[2021-06-02 00:44] LABS: URINE PHENCYCLIDINE < 25 (25ng/ml)
[2021-06-02 00:50] LABS: RBC 0-2 rbc/hpf (0-2); WBC 0-2 wbc/hpf (0-5)
[2021-06-03] VITALS: BP 142/76
[2021-06-03 06:27] LABS: BUN 7 mg/dl (7-24); CHLORIDE 107 mmol/L (98-107); CREATININE 0.41 mg/dL (0.55-1.02); POTASSIUM 3.6 mmol/L (3.5-5.1)
[2021-06-03 06:49] LABS: SODIUM 138 mmol/L (136-145)
[2021-06-03 07:33] LABS: BASO % 0.5 % (0.0-1.0); EOS # 0.1 10*3/uL (0.0-0.4); EOS % 1.6 % (1.0-4.0); HEMATOCRIT 35.3 % (37.0-47.0); LYMPH # 1.2 10*3/uL (1.3-4.4); LYMPH % 30.9 % (27.0-41.0); MEAN CELL VOLUME 77.9 fl (81.0-99.0); MEAN CORPUSCULAR HGB 24.9 pg (27.0-31.0); MEAN PLATELET VOLUME 10.7 fl (9.6-12.3); MONO # 0.3 10*3/uL (0.1-1.0); MONO % 8.8 % (3.0-9.0); NEUT # 2.2 10*3/uL (2.3-7.9); NEUT % 58.2 % (47.0-73.0); RED BLOOD COUNT 4.53 10*6/uL (4.10-5.10); RED CELL DISTRI WIDTH 15.1 % (0-14.5); WHITE BLOOD COUNT 3.8 10*3/uL (4.8-10.8)
[2021-06-03 07:39] LABS: PLATELET COUNT AUTOMATED 122 10*3/uL (130-400)
[2021-06-03 08:00] VITALS: BP 142/80; BP 176/94
[2021-06-03 12:00] VITALS: BP 142/92
[2021-06-03 16:00] VITALS: BP 152/93
[2021-06-03 20:00] VITALS: BP 125/87
[2021-06-04] VITALS: BP 123/77
[2021-06-04 08:00] VITALS: BP 114/75
[2021-06-04 12:00] VITALS: BP 115/71
[2021-06-04 16:00] VITALS: BP 112/74
[2021-06-04 21:46] VITALS: BP 125/73
[2021-06-05] VITALS: BP 123/75
[2021-06-05] MEDS ORDERED: DULOXETINE HCL30 MG PO (07:56)
[2021-06-05] MEDS ORDERED: GLUCOPHAGE500 MG PO ×3 (07:56→07:59)
[2021-06-05] MEDS ORDERED: TRAD5TAB1 PO (07:56)
[2021-06-05] MEDS ORDERED: NEURONTIN300 MG PO (07:56)
[2021-06-05 08:00] VITALS: BP 109/71
== END 2021-06-05 13:12 | disposition home or self-care (01) | DRG 638 ==
LOC: ED 23:02 → 5E 06-02 01:21 → EDHOLD 06-02 01:21 → ICCU 06-02 07:10 → 5E 06-02 15:32
PROVIDERS: Emergency Medicine; ADMIT Internal Medicine; ATTEND Internal Medicine
DX: E11.00 Type 2 diabetes mellitus with hyperosmolarity without nonketotic hyperglycemic-hyperosmolar coma (NKHHC) (principal); N17.9 Acute kidney failure, unspecified; E87.1 Hypo-osmolality and hyponatremia; F33.1 Major depressive disorder, recurrent, moderate; E44.0 Moderate protein-calorie malnutrition; E11.65 Type 2 diabetes mellitus with hyperglycemia; E11.42 Type 2 diabetes mellitus with diabetic polyneuropathy; K75.81 Nonalcoholic steatohepatitis (NASH); F41.1 Generalized anxiety disorder; E11.51 Type 2 diabetes mellitus with diabetic peripheral angiopathy without gangrene; I25.10 Atherosclerotic heart disease of native coronary artery without angina pectoris; G89.29 Other chronic pain; M06.9 Rheumatoid arthritis, unspecified; F11.10 Opioid abuse, uncomplicated; M79.7 Fibromyalgia; Z88.2 Allergy status to sulfonamides; Z90.710 Acquired absence of both cervix and uterus; Z95.5 Presence of coronary angioplasty implant and graft; Z90.49 Acquired absence of other specified parts of digestive tract; Z68.26 Body mass index [BMI] 26.0-26.9, adult